=== PATIENT | male | born 1930 | race Caucasian/White ===

== ENCOUNTER 2016-06-30 09:18 | Emergency (ER) | payer BC ==
[~2016-06-30] VITALS: Ht 167.6 cm; Wt 47.4 kg
[~2016-06-30 09:18] MED LIST: CARV6.252 PO; GLUCTAB PO; LISI-363 PO
[2016-06-30 09:22] VITALS: BP 169/76; PULSE 82; RESP 16; TEMP 98.5; O2SAT 100
[2016-06-30] MEDS ORDERED: SODIUM CHLORIDE 0.9% FLUSH 10 ML FLUSH IVF PRN (09:45)
[2016-06-30 09:48] VITALS: O2SAT 99
[2016-06-30] MEDS ORDERED: [UNRECOGNIZED DRUG - REMARK] (09:51)
[2016-06-30] MEDS ORDERED: METF500T PO (09:51)
[2016-06-30 10:02] VITALS: BP_SYST 121; BP_SYST 125; BP_DIAS 57; BP_DIAS 63
[2016-06-30 10:07] LABS: AUTOMATED NEUTROPHIL # 5.1 TH/MM3 (1.8-7.7); BASOPHIL % 0.4 % (0.0-2.0); EOSINOPHIL # 0.4 TH/MM3 (0-0.4); HEMATOCRIT 39.9 % (39.0-51.0); HEMO FLAGS DIFF FINAL; LYMPH % 17.1 % (9.0-44.0); LYMPHOCYTE # 1.3 TH/MM3 (1.0-4.8); MEAN CELL VOLUME 99.3 FL (80.0-100.0); MEAN CORPUSCULAR HEMOGLOBIN 33.7 PG (27.0-34.0); MEAN CORPUSCULAR HGB CONC 33.9 % (32.0-36.0); MONO % 12.3 % (0.0-8.0); NEUT % 65.2 % (16.0-70.0); PLATELET COUNT 275 TH/MM3 (150-450); RED BLOOD COUNT 4.02 MIL/MM3 (4.50-5.90); RED CELL DISTRIBUTION WIDTH 12.6 % (11.6-17.2); WHITE BLOOD COUNT 7.7 TH/MM3 (4.0-11.0)
[2016-06-30 10:17] LABS: CHLORIDE 103 MEQ/L (98-107); POTASSIUM 4.1 MEQ/L (3.5-5.1); SODIUM (NA) 139 MEQ/L (136-145)
[2016-06-30 10:21] LABS: ANION GAP 7 MEQ/L (5-15); BICARBONATE 29.5 MEQ/L (21.0-32.0); BLOOD UREA NITROGEN 18 MG/DL (7-18)
[2016-06-30 10:24] LABS: ALT (GPT) 17 U/L (12-78); AST (GOT) 16 U/L (15-37); GLOMERULAR FILTRATION RATE 98 ML/MIN (>89)
[2016-06-30 10:26] LABS: TOTAL BILIRUBIN ADULT 0.6 MG/DL (0.2-1.0)
[2016-06-30 10:27] LABS: ALKALINE PHOSPHATASE 76 U/L (45-117)
[2016-06-30 10:42] VITALS: BP 168/82; PULSE 79; RESP 16; O2SAT 98
--- NOTE | 2016-06-30 10:48 | PD ---
HPI Chief Complaint: General Weakness Time Seen by Provider: 09:31 Travel History International Travel<30 days: No Contact w/Intl Traveler<30days: No Traveled to known affect area: No History of Present Illness HPI This is an 85-year-old male who presents to the emergency department with nonspecific complaints. He reports that last evening he felt very constipated and was having trouble having a bowel movement. He said he couldn't sleep. He said he was reading on the Internet and found a website about hospice and he thought his symptoms sounded like he was dying so he came to the emergency department to get checked out. He has a very poor historian, very tangential and doesn't provide much focused history. PFSH Past Medical History 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) Cardiovascular Problems: Yes (PACER/DEFIB.) COPD: Yes Diabetes: Yes (type II) Patient Takes Glucophage: Yes Diminished Hearing: No Endocrine: Yes Genitourinary: No Hepatitis: No Hiatal Hernia: No Hypertension: Yes Immune Disorder: No Musculoskeletal: No Neurologic: Yes (HX STROKE 2003) Psychiatric: Yes (DEPRESSION ) Reproductive: No Respiratory: Yes ("WHOOPING COUGH AND DOUBLE PNEUMONIA ") Immunizations Current: Yes Thyroid Disease: No Tetanus Vaccination: < 5 Years Influenza Vaccination: Yes Past Surgical History Abdominal Surgery: No AICD: Yes Cardiac Surgery: Yes (BALLOON ANGIOPLASTY, STENT) Ear Surgery: No Endocrine Surgery: No Eye Surgery: No Genitourinary Surgery: No Joint Replacement: No Oral Surgery: No Pacemaker: Yes (GUIDANT - [employer]) Thoracic Surgery: No Other Surgery: Yes (CATERACT) Social History Alcohol Use: No Tobacco Use: No Substance Use: No Allergies-Medications (Allergen,Severity, Reaction): Coded Allergies: No Known Allergies (Unverified , 06/30/16) Reported Meds & Prescriptions Reported Meds & Active Scripts Active Reported [Thydroid Med] Metformin (Metformin HCl) 500 Mg Tab 500 Mg PO DIRECTED With meals Review of Systems ROS Limitations: Poor Historian Physical Exam Narrative GENERAL: Frail elderly gentleman in no acute distress SKIN: Dry HEAD: Atraumatic. Normocephalic. EYES: Pupils equal and round. No injection or drainage. ENT: Moist mucous membranes NECK: Trachea midline. CARDIOVASCULAR: Regular rate and rhythm. No murmur appreciated. RESPIRATORY: Clear to auscultation. Breath sounds equal bilaterally. GASTROINTESTINAL: Abdomen soft, non-tender, nondistended. MUSCULOSKELETAL: No obvious deformities. NEUROLOGICAL: Oriented to person, place and time, able to answer questions appropriately but does seem somewhat confused. No obvious cranial nerve deficits. Moving all extremities. PSYCHIATRIC: Able to make his own decisions and articulate appropriate answers to questions. Data Data Last Documented VS Vital Signs Date Time Temp Pulse Resp B/P Pulse Ox O2 Delivery O2 Flow Rate FiO2 06/30/16 10:42 79 16 168/82 98 Room Air 06/30/16 09:22 98.5 Orders Electrocardiogram (06/30/16 09:43) Complete Blood Count With Diff (06/30/16 09:43) Comprehensive Metabolic Panel (06/30/16 09:43) Troponin I (06/30/16 09:43) Ecg Monitoring (06/30/16 09:43) Bilateral Bp Monitoring (06/30/16 09:43) Iv Access Insert/Monitor (06/30/16 09:43) Oximetry (06/30/16 09:43) Oxygen Administration (06/30/16 09:43) Sodium Chloride 0.9% Flush (Ns Flush) (06/30/16 09:45) Magnesium (Mg) (06/30/16 09:43) Labs Laboratory Tests Test 06/30/16 10:00 White Blood Count 7.7 TH/MM3 Red Blood Count 4.02 MIL/MM3 Hemoglobin 13.5 GM/DL Hematocrit 39.9 % Mean Corpuscular Volume 99.3 FL Mean Corpuscular Hemoglobin 33.7 PG Mean Corpuscular Hemoglobin 33.9 % Concent Red Cell Distribution Width 12.6 % Platelet Count 275 TH/MM3 Mean Platelet Volume 7.6 FL Neutrophils (%) (Auto) 65.2 % Lymphocytes (%) (Auto) 17.1 % Monocytes (%) (Auto) 12.3 % Eosinophils (%) (Auto) 5.0 % Basophils (%) (Auto) 0.4 % Neutrophils # (Auto) 5.1 TH/MM3 Lymphocytes # (Auto) 1.3 TH/MM3 Monocytes # (Auto) 0.9 TH/MM3 Eosinophils # (Auto) 0.4 TH/MM3 Basophils # (Auto) 0.0 TH/MM3 CBC Comment DIFF FINAL Differential Comment Sodium Level 139 MEQ/L Potassium Level 4.1 MEQ/L Chloride Level 103 MEQ/L Carbon Dioxide Level 29.5 MEQ/L Anion Gap 7 MEQ/L Blood Urea Nitrogen 18 MG/DL Creatinine 0.76 MG/DL Estimat Glomerular Filtration 98 ML/MIN Rate Random Glucose 147 MG/DL Calcium Level 8.7 MG/DL Magnesium Level 2.0 MG/DL Total Bilirubin 0.6 MG/DL Aspartate Amino Transf 16 U/L (AST/SGOT) Alanine Aminotransferase 17 U/L (ALT/SGPT) Alkaline Phosphatase 76 U/L Troponin I LESS THAN 0.02 NG/ML Total Protein 6.6 GM/DL Albumin 3.6 GM/DL [facility] Medical Decision Making Medical Screen Exam Complete: Yes Emergency Medical Condition: Yes Interpretation(s) Afebrile, no tachycardia, hypertensive No leukocytosis Electrolytes are reassuring Troponin is normal Magnesium is normal EKG: Sinus rhythm with frequent PVCs, right bundle branch block Differential Diagnosis Electrolyte abnormality, dehydration, arrhythmia, myocardial infarction Narrative Course This is a well-appearing 85-year-old male who presents to the emergency department with nonspecific complaints saying he didn't feel well last night. It's very difficult to get a handle on what symptoms the patient actually had. He mentions having trouble sleeping and mentions constipation. I did call the patient's significant other who was unable to provide much additional history but does say that his has been and he reiterates his concern dying. Currently the patient says he feels back to normal. I think the patient has dementia and this is driving his presentation today.. I spoke to his daughter Agnes who does say he has been getting more confused over the past 4-6 weeks. He's been getting preoccupied with certain things, and has been getting confused about money. She agrees that she is concerned about his driving. I asked her to make an appointment with the patient's primary care physician regarding his confusion which she agreed to do. We talked about the safety of the patient's driving. She lives in [place] so is unable to pick him up right now. I discussed with the patient that I was concerned about his driving. He was able to articulate answers to my questions and his reasoning for wanting to drive. I don't think I can keep him against his will and I think he has decision-making capacity, but given her concern we did call the police to alert them that he was driving himself home. Diagnosis Primary Impression: Dementia Qualified Code: F03.90 - Dementia without behavioral disturbance, unspecified dementia type Patient Instructions: General Instructions Additional Instructions: It is very important that he follow-up with a primary care physician regarding your increasing confusion Med/Other Pt SpecificInfo: No Change to Meds Disposition: 01 DISCHARGE HOME Condition: Stable Meron Roy MD June 30, 2016 10:48
--- NOTE | 2016-06-30 20:10 | EKG ---
Date Performed: 06/30/2016 Time Performed: 09:47:28 PTAGE: 85 years EKG: Sinus rhythm with frequent PVCs Right bundle branch block Low QRS voltages in limb leads Abnormal ECG PREVIOUS TRACING : 12/18/2014 06.42 Compared to the previous tracing PVCs present DOCTOR: Daryn Washburn Interpretating Date/Time 06/30/2016 20:08:50
== END 2016-06-30 11:22 | disposition home or self-care (01) ==
LOC: PHED 09:18
DX: F03.90 Unspecified dementia, unspecified severity, without behavioral disturbance, psychotic disturbance, mood disturbance, and anxiety (principal); K59.00 Constipation, unspecified; I49.3 Ventricular premature depolarization; I45.10 Unspecified right bundle-branch block; F32.9 Major depressive disorder, single episode, unspecified; J44.9 Chronic obstructive pulmonary disease, unspecified; E11.9 Type 2 diabetes mellitus without complications; I10 Essential (primary) hypertension; Z86.73 Personal history of transient ischemic attack (TIA), and cerebral infarction without residual deficits
CPT/HCPCS: 80053; 83735; 84484; 85025; 93005; 99284

== ENCOUNTER 2016-09-26 19:29 | Emergency (ER) | payer BC ==
[~2016-09-26 19:29] MED LIST changes: -CARV6.252 PO; -GLUCTAB PO; -LISI-363 PO; +METF500T PO; +[UNRECOGNIZED DRUG - REMARK]
[2016-09-26 19:43] VITALS: BP 194/91; PULSE 104; RESP 18; TEMP 98.1; O2SAT 97
[2016-09-26] MEDS ORDERED: LISI-515 PO (20:29)
[2016-09-26] MEDS ORDERED: METF500T PO (20:29)
[2016-09-26] MEDS ORDERED: CARV6.252 PO (20:29)
[2016-09-26] MEDS ORDERED: TRAZ50TA12 PO (20:29)
[2016-09-26] MEDS ORDERED: RIVA1DIS2 T-DERMAL (20:29)
[2016-09-26] MEDS ORDERED: SODIUM CHLORIDE 0.9% FLUSH 10 ML FLUSH IVF PRN (20:30)
--- NOTE | 2016-09-26 20:54 | RADRPT ---
EXAM DATE/TIME: 09/26/2016 20:43 [facility] COMPARISON: No previous studies available for comparison. INDICATIONS : Shortness of breath and heart palpitations. MEDICAL HISTORY : Diabetes mellitus type II. SURGICAL HISTORY : CABG. Pacemaker. ENCOUNTER: Initial ACUITY: 2 days PAIN SCORE: 0/10 LOCATION: Bilateral chest FINDINGS: The lungs are clear without infiltrate, nodule, or mass. There is no appreciable pleural effusion fo r technique. Heart and mediastinum are unremarkable. Left subclavian transvenous pacer wires are pre sent with tips in the right atrium and right ventricle. There are atherosclerotic calcifications of t he aorta due to chronic atherosclerotic disease. Evidence for prior granulomatous exposure. CONCLUSION: No acute cardiopulmonary disease. Brigid Gallagher MD on September 26, 2016 at 20:52 Board Certified Radiologist. This report was verified electronically.
[2016-09-26 20:59] LABS: BASOPHIL % 0.3 % (0.0-2.0); EOSINOPHIL % 0.1 % (0.0-4.0); HEMATOCRIT 45.2 % (39.0-51.0); LYMPH % 6.6 % (9.0-44.0); MEAN CELL VOLUME 97.7 FL (80.0-100.0); MEAN CORPUSCULAR HEMOGLOBIN 32.4 PG (27.0-34.0); MEAN CORPUSCULAR HGB CONC 33.2 % (32.0-36.0); PLATELET COUNT 264 TH/MM3 (150-450); RED BLOOD COUNT 4.62 MIL/MM3 (4.50-5.90); RED CELL DISTRIBUTION WIDTH 12.3 % (11.6-17.2); WHITE BLOOD COUNT 14.8 TH/MM3 (4.0-11.0)
[2016-09-26 21:00] LABS: HEMO FLAGS DIFF FINAL
[2016-09-26 21:03] VITALS: BP 193/81; PULSE 97; RESP 18; O2SAT 98
[2016-09-26 21:08] LABS: CHLORIDE 100 MEQ/L (98-107); POTASSIUM 3.6 MEQ/L (3.5-5.1); SODIUM (NA) 135 MEQ/L (136-145)
[2016-09-26 21:11] LABS: ANION GAP 6 MEQ/L (5-15); BICARBONATE 28.8 MEQ/L (21.0-32.0); BLOOD UREA NITROGEN 14 MG/DL (7-18); MAGNESIUM 1.5 MG/DL (1.5-2.5)
[2016-09-26 21:13] LABS: APTT (PATIENT) 27.7 SEC (24.3-30.1); INTERNATIONAL NORMALIZED RATIO 1.1 RATIO; PROTHROMBIN TIME - PATIENT 11.8 SEC (9.8-11.6)
[2016-09-26 21:14] LABS: GLOMERULAR FILTRATION RATE 79 ML/MIN (>89)
--- NOTE | 2016-09-26 21:18 | RADRPT ---
EXAM DATE/TIME: 09/26/2016 20:51 [facility] COMPARISON: No previous studies available for comparison. INDICATIONS : Dizziness and shortness of brreath RADIATION DOSE: 61.60 CTDIvol (mGy) MEDICAL HISTORY : Stroke. Diabetes mellitus type 2. Hypertension. SURGICAL HISTORY : Coronary artery stent. cataract ENCOUNTER: Initial ACUITY: 1 day PAIN SCALE: 0/10 LOCATION: cranial TECHNIQUE: Multiple contiguous axial images were obtained of the head. Using automated exposure control and adj ustment of the mA and/or kV according to patient size, radiation dose was kept as low as reasonably a chievable to obtain optimal diagnostic quality images. DICOM format image data is available electro nically for review and comparison. FINDINGS: There is no evidence for intracranial hemorrhage, mass effect, mass lesions, or edema. The visualize d bony structures appear intact. Moderate degree of brain atrophy is seen. Moderate periventricular white matter changes are seen nonspecific mostly consistent with chronic small vessel ischemic change s. There are no signs of acute infarction for technique. There are also old lacunar infarctions in b rachel ganglia bilaterally. CONCLUSION: Chronic and small vessel ischemic changes without any evidence for acute hemorrhage o r mass effect. Brigid Gallagher MD on September 26, 2016 at 21:15 Board Certified Radiologist. This report was verified electronically.
[2016-09-26 21:24] LABS: CREATINE KINASE 49 U/L (39-308)
--- NOTE | 2016-09-26 21:25 | PD ---
HPI Chief Complaint: Respiratory Symptoms Time Seen by Provider: 20:28 Travel History International Travel<30 days: No Contact w/Intl Traveler<30days: No Traveled to known affect area: No History of Present Illness HPI 85-year-old male presents to the emergency department from home by private transportation the care of his daughter for evaluation of generalized weakness right-sided neck pain and shortness of breath with exertion. Patient with history of dementia, peripheral vascular disease with left lower extremity left femoral endarterectomy with patch angioplasty and iliofemoral angiography 2014, pacemaker AICD, hypertension, diabetes, and hypothyroidism. Patient has had no injury or fall. Patient has been weaker over the past several days. There is no reported fever or chills. No productive cough or shortness of breath. No complaint of chest pain or referred jaw shoulder arm back or abdominal pain. No defibrillation from his AICD since placement. No nausea or vomiting or abdominal pain and no change in bowel habit no diarrhea or constipation or melena or hematochezia. Normal urine output. No change in medications. No focal upper or lower extremity numbness tingling weakness or pain. No complaint of left lower extremity weakness coolness pain or pallor. Right- sided neck pain is noted as 5/10 in intensity and not worsened with palpation or range of motion and no noted redness or swelling or warmth. Shortness of breath exertion has been noted 2 days. No report of dyspnea at rest orthopnea or PND and no lower extremity pain or swelling or redness. Patient recently had his dementia medication increased by his neurologist Dr. Hall. ON LICENSE OF [facility] Past Medical History Narrative Medical Aspirin daily COPD hypothyroidism diabetes skin cancer CAD with an angioplasty and stent pacemaker defibrillator peripheral vascular disease with endarterectomy stroke in 2002 dementia depression; no tobaccoism; nursing notes reviewed 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) Cardiovascular Problems: Yes (PACER/DEFIB.) COPD: Yes Diabetes: Yes (type II) Patient Takes Glucophage: Yes Diminished Hearing: No Endocrine: Yes Gastrointestinal Disorders: No Genitourinary: No Hepatitis: No Hiatal Hernia: No Hypertension: Yes Immune Disorder: No Medical other: No Musculoskeletal: No Neurologic: Yes (HX STROKE 2002) Psychiatric: Yes (DEPRESSION ) Reproductive: No Respiratory: Yes ("WHOOPING COUGH AND DOUBLE PNEUMONIA INFANT") Immunizations Current: Yes Thyroid Disease: No ?: Not Past Surgical History Abdominal Surgery: No AICD: Yes Cardiac Surgery: Yes (BALLOON ANGIOPLASTY, STENT) Ear Surgery: No Endocrine Surgery: No Eye Surgery: No Genitourinary Surgery: No Joint Replacement: No Neurologic Surgery: No Oral Surgery: No Pacemaker: Yes (GUIDANT - [employer]) Thoracic Surgery: No Other Surgery: Yes (CATERACT) Social History Alcohol Use: No Tobacco Use: No Substance Use: No Allergies-Medications (Allergen,Severity, Reaction): Coded Allergies: No Known Allergies (Unverified , 09/26/16) Reported Meds & Prescriptions Reported Meds & Active Scripts Active Reported Rivastigmine Patch (Rivastigmine) 9.5 mg/24 hr Patch 1 Patch T-DERMAL DAILY Lisinopril 20 Mg Tab 20 Mg PO DAILY Carvedilol 6.25 Mg Tab 6.25 Mg PO BID Metformin (Metformin HCl) 500 Mg Tab 500 Mg PO TIDPC With meals Trazodone (Trazodone HCl) 50 Mg Tab 50 Mg PO HS [Thydroid Med] Metformin (Metformin HCl) 500 Mg Tab 500 Mg PO DIRECTED With meals Review of Systems Except as stated in HPI: all other systems reviewed are Neg General / Constitutional: No: Fever, Chills HENT: Positive: Neck Pain (right sided), No: Headaches, Sore Throat, Congestion, Masses, Earache Cardiovascular: Positive: Dyspnea on exertion, No: Chest Pain or Discomfort, Palpitations, Diaphoresis, Edema Respiratory: No: Cough, Shortness of Breath, Wheezing, Orthopnea, Pleuritic Pain Gastrointestinal: No: Nausea, Vomiting, Abdominal Pain Genitourinary: No: Flank Pain Musculoskeletal: No: Myalgias, Arthralgias, Weakness, Cramping, Edema, Pain Skin: No Rash Neurologic: Positive: Weakness (generalized), No: Syncope, Focal Abnormalities , Headache, Change in Mentation, Sensory Disturbance Psychiatric: No: Anxiety Endocrine: No: Heat Intolerance Hematologic/Lymphatic: No: Easy Bruising Physical Exam Narrative GENERAL: Well-developed elderly male in no acute distress no respiratory distress resting 30 semi-Khan on exam stretcher. GCS 15. SKIN: Warm and dry. HEAD: Normocephalic. EYES: No scleral icterus. No injection or drainage. NECK: Supple, trachea midline. No JVD or lymphadenopathy. CARDIOVASCULAR: Regular rate and rhythm without murmurs, gallops, or rubs. RESPIRATORY: Breath sounds equal bilaterally. No accessory muscle use. GASTROINTESTINAL: Abdomen soft, non-tender, nondistended. MUSCULOSKELETAL: No cyanosis, or edema. Bilateral radial pulses 2++=; right PT 2 +, R DP 1+; Left PT to palpation L DP 1+ to palpation; bilateral capillary refill < 2 seconds BACK: Nontender without obvious deformity. No CVA tenderness. Data Data Last Documented VS Vital Signs Date Time Temp Pulse Resp B/P Pulse Ox O2 Delivery O2 Flow Rate FiO2 09/26/16 23:12 84 16 176/72 100 09/26/16 22:08 Room Air 09/26/16 19:43 98.1 Orders Electrocardiogram (09/26/16 20:28) Basic Metabolic Panel (Bmp) (09/26/16 20:28) Complete Blood Count With Diff (09/26/16 20:28) Magnesium (Mg) (09/26/16 20:28) Ckmb (Isoenzyme) Profile (09/26/16 20:28) Troponin I (09/26/16 20:28) Act Partial Throm Time (Ptt) (09/26/16 20:28) Prothrombin Time / Inr (Pt) (09/26/16 20:28) Urinalysis - C+S If Indicated (09/26/16 20:28) Chest, Single Ap (09/26/16 20:28) Ct Brain W/O Iv Contrast(Rout) (09/26/16 20:28) Blood Glucose (09/26/16 20:28) Ecg Monitoring (09/26/16 20:28) Iv Access Insert/Monitor (09/26/16 20:28) Oximetry (09/26/16 20:28) Sodium Chloride 0.9% Flush (Ns Flush) (09/26/16 20:30) Carvedilol (Coreg) (09/26/16 21:45) Ketorolac Inj (Toradol Inj) (09/26/16 22:15) Ct Cerv Spine W/O Contrast (09/26/16 ) Labs Laboratory Tests Test 09/26/16 09/26/16 20:50 21:30 White Blood Count 14.8 TH/MM3 Red Blood Count 4.62 MIL/MM3 Hemoglobin 15.0 GM/DL Hematocrit 45.2 % Mean Corpuscular Volume 97.7 FL Mean Corpuscular Hemoglobin 32.4 PG Mean Corpuscular Hemoglobin 33.2 % Concent Red Cell Distribution Width 12.3 % Platelet Count 264 TH/MM3 Mean Platelet Volume 8.0 FL Neutrophils (%) (Auto) 81.0 % Lymphocytes (%) (Auto) 6.6 % Monocytes (%) (Auto) 12.0 % Eosinophils (%) (Auto) 0.1 % Basophils (%) (Auto) 0.3 % Neutrophils # (Auto) 12.0 TH/MM3 Lymphocytes # (Auto) 1.0 TH/MM3 Monocytes # (Auto) 1.8 TH/MM3 Eosinophils # (Auto) 0.0 TH/MM3 Basophils # (Auto) 0.0 TH/MM3 CBC Comment DIFF FINAL Differential Comment Prothrombin Time 11.8 SEC Prothromb Time International 1.1 RATIO Ratio Activated Partial 27.7 SEC Thromboplast Time Sodium Level 135 MEQ/L Potassium Level 3.6 MEQ/L Chloride Level 100 MEQ/L Carbon Dioxide Level 28.8 MEQ/L Anion Gap 6 MEQ/L Blood Urea Nitrogen 14 MG/DL Creatinine 0.92 MG/DL Estimat Glomerular Filtration 79 ML/MIN Rate Random Glucose 193 MG/DL Calcium Level 9.0 MG/DL Magnesium Level 1.5 MG/DL Total Creatine Kinase 49 U/L Troponin I LESS THAN 0.02 NG/ML Urine Color YELLOW Urine Turbidity CLOUDY Urine pH 7.0 Urine Specific [place] 1.015 Urine Protein 30 mg/dL Urine Glucose (UA) NEG mg/dL Urine Ketones NEG mg/dL Urine Occult Blood TRACE Urine Nitrite NEG Urine Bilirubin NEG Urine Leukocyte Esterase NEG Urine RBC 3-5 /hpf Urine WBC 0-2 /hpf Urine Squamous Epithelial 0-5 /hpf Cells Urine Amorphous Sediment LARGE Urine Bacteria NONE /hpf Microscopic Urinalysis Comment CULT NOT INDICATED MDM Medical Decision Making Medical Screen Exam Complete: Yes Emergency Medical Condition: Yes Medical Record Reviewed: Yes Interpretation(s) EKG sinus rhythm rate 95 right bundle branch block pattern no acute ST elevation or injury pattern right bundle branch block pattern noted 06/2016 CT cerv spine: CONCLUSION: Neural foramina compromise left C5-C6 multinodular goiter and chronic degenerative spondylosis. Brigid Gallagher MD on September 26, 2016 at 22:45 Board Certified Radiologist. This report was verified electronically. Last Impressions Head CT 09/26/162027 Signed Impressions: Service Date/Time: Monday, September 26, 2016 20:51 - CONCLUSION: Chronic and small vessel ischemic changes without any evidence for acute hemorrhage or mass effect. Brigid Gallagher MD Chest X-Ray 09/26/162027 Signed Impressions: Service Date/Time: Monday, September 26, 2016 20:43 - CONCLUSION: No acute cardiopulmonary disease. Brigid Gallagher MD CBC & BMP Diagram 09/26/16 20:50 UA: wnl Vital Signs Date Time Temp Pulse Resp B/P Pulse Ox O2 Delivery O2 Flow Rate FiO2 09/26/16 22:08 77 16 173/88 99 Room Air 09/26/16 21:43 85 16 164/82 99 Room Air 09/26/16 21:03 97 18 193/81 98 Room Air 09/26/16 20:31 98 09/26/16 19:43 98.1 104 18 194/91 97 Differential Diagnosis Generalized weakness, anemia, hypothyroidism, ACS, musculoskeletal neck pain, UTI, sepsis, arrhythmia, PE; also to consider dissection Narrative Course IV access obtained specimens collected and sent for resulting EKG performed which shows sinus rhythm with previously noted right bundle branch block pattern no acute injury pattern change noted CBC is automated differential total white cell count is elevated 14,800 with 81 % neutrophils normal hemoglobin hematocrit and platelet count; chemistries are grossly within normal range is identified a random glucose of 193 nonspecific CK total is 49 not elevated troponin I is less than 0.02, not elevated and coagulation studies are found to be in normal range. Urinalysis is pending. Patient's had taken his evening dose of carvedilol 6.25 mg which will be administered in the emergency department as Blood pressure is noted to remain elevated. Patient rates discomfort 0/10 intensity. Patient is animated and conversant with medical staff and with family members. CT brain noncontrast reveals no acute abnormality does show chronic ischemic changes and chest x-ray reveals no acute abnormality. @ 22:04 patient now c/o pain again to the right side of the neck and reports that in fact he has had several falls that he had not told anyone about. CT cervical spine and neck ordered. Patient given Toradol 50 mg IV. Diagnosis Primary Impression: Generalized weakness Additional Impressions: Viral syndrome LAD (lymphadenopathy) of right cervical region Cervical disc disease Multinodular goiter Referrals: Primary Care Physician 2 days Patient Instructions: General Instructions Additional Instructions: Take daily medications as presently prescribed Monitor temperature every 4 hours with thermometer take acetaminophen/Tylenol every 4 hours as needed for fever 100.4F or greater May take ibuprofen/Motrin/Advil 200-400 mg as often as every 8 hours for 2-3 doses as needed for pain associated with inflammation Follow-up with primary care provider call office on Wednesday Return to the emergency department for increased pain fever or any concerns or change in condition Med/Other Pt SpecificInfo: No Change to Meds Disposition: 01 DISCHARGE HOME Condition: Stable Vilma Blevins MD Sep 26, 2016 21:25
[2016-09-26 21:39] LABS: BLOOD, URINE TRACE (NEG); GLUCOSE,URINE NEG (NEG); KETONE, URINE NEG (NEG); NITRITE,URINE NEG (NEG)
[2016-09-26 21:40] LABS: URINE COLOR YELLOW (YELLW/STRAW)
[2016-09-26 21:43] VITALS: BP 164/82; PULSE 85; RESP 16; O2SAT 99
[2016-09-26 21:43] LABS: COMMENT (UR) CULT NOT INDICATED; CULTURE IF INDICATED CULT NOT INDICATED; SQUAMOUS EPITHELIAL CELL URINE 0-5 /hpf (0-5); WBC, URINE 0-2 /hpf (0-5)
[2016-09-26] MEDS ORDERED: CARVEDILOL 6.25 MG TAB PO ONE (21:45)
[2016-09-26 22:08] VITALS: BP 173/88; PULSE 77; RESP 16; O2SAT 99
[2016-09-26] MEDS ORDERED: KETOROLAC TROMETHAMINE 30 MG/ML (IVP) VIAL IV PUSH ONE (22:15)
--- NOTE | 2016-09-26 22:50 | RADRPT ---
EXAM DATE/TIME: 09/26/2016 22:24 [facility] COMPARISON: No previous studies available for comparison. TECHNIQUE: Volumetric scanning of the cervical spine was performed. Multiplanar reconstructions in the sagittal, coronal and oblique axial planes were performed. Using automated exposure control and adjustment o f the mA and/or kV according to patient size, radiation dose was kept as low as reasonably achievable to obtain optimal diagnostic quality images. DICOM format image data is available electronically f or review and comparison. FINDINGS: There is approximate 2-3 mm anterior subluxation C3 with respect to C4 in addition to step-like retrolisthesis C4-5 and C5-6 on a chronic and degenerative basis. Multinodular goiter is present with the largest nodule on the right side measures 2.2 cm in size. No definite fracture is seen for techn ique. C2-C3: Mild central disc protrusion is present without any significant compromise to the thecal sac or the e xiting nerve roots. C3-C4: Slight degenerative changes are seen within the disc space and facets. Slight bulging disc and hypert rophic changes are seen with indentation on the thecal sac and no significant compromise to the theca l sac or the exiting nerve roots. C4-C5: Moderate degenerative changes are seen within the disc space and facets. Slight bulging disc and hype rtrophic changes are seen with indentation on the thecal sac and no significant compromise to the the vianey sac or the exiting nerve roots. C5-C6: Moderate degenerative changes are seen within the disc space and facets. There is moderate neural for obi compromise on the left due to asymmetrical bulging disc and hypertrophic changes. No appreciabl e thecal sac stenosis is seen. C6-C7: There is no evidence for any significant compromise to the thecal sac, or the exiting nerve roots. N o appreciable thecal sac stenosis is seen. The neural foramina and lateral recess appear patent bila terally. C7-T1: There is no evidence for any significant compromise to the thecal sac, or the exiting nerve roots. N o appreciable thecal sac stenosis is seen. The neural foramina and lateral recess appear patent bila terally. CONCLUSION: Neural foramina compromise left C5-C6 multinodular goiter and chronic degenerative spondylosis. Brigid Gallagher MD on September 26, 2016 at 22:45 Board Certified Radiologist. This report was verified electronically.
[2016-09-26 23:12] VITALS: BP 176/72
--- NOTE | 2016-09-27 15:58 | EKG ---
Date Performed: 09/26/2016 Time Performed: 20:38:36 PTAGE: 85 years EKG: Sinus rhythm POSSIBLE LEFT ATRIAL ENLARGEMENT RIGHT BUNDLE BRANCH BLOCK ABNORMAL ECG Compared to PREVIOUS TRACING , PVCs have resolved. PREVIOUS TRACIN06/30/2016 09.47 DOCTOR: Fracisco Rivero Interpretating Date/Time 09/27/2016 15:58:24
== END 2016-09-26 23:14 | disposition home or self-care (01) ==
LOC: PHED 19:29
DX: R53.1 Weakness (principal); B34.9 Viral infection, unspecified; R59.0 Localized enlarged lymph nodes; M50.90 Cervical disc disorder, unspecified, unspecified cervical region; E04.2 Nontoxic multinodular goiter; I10 Essential (primary) hypertension; E11.9 Type 2 diabetes mellitus without complications; Z79.84 Long term (current) use of oral hypoglycemic drugs; Z79.899 Other long term (current) drug therapy
CPT/HCPCS: 70450; 71010; 72125; 80048; 81001; 82550; 83735; 84484; 85025; 85610; 85730; 93005; 96374; 99285; J1885

== ENCOUNTER 2017-01-12 05:53 | Inpatient (IN) | payer MEDICARE, BC ==
[2017-01-12] VITALS (8 sets, daily range): BP systolic 115–148; BP diastolic 56–65; PULSE 53–87; RESP 16–17; TEMP 97.5–98.3; O2SAT 92–99
[~2017-01-12] VITALS: Ht 160 cm; Wt 49.5 kg
[~2017-01-12 05:53] MED LIST changes: +CARV6.252 PO; +LISI-515 PO; -METF500T PO; +NAME5TAB2 PO; +RIVA1DIS2 T-DERMAL; +TRAZ50TA12 PO; -[UNRECOGNIZED DRUG - REMARK]
[2017-01-12] MEDS ORDERED: SODIUM CHLORIDE 0.9% INJ 100 ML ONE (06:38)
[2017-01-12] MEDS ORDERED: ceFAZolin INJ 1,000 MG VIAL ONE ×2 (06:38→10:43)
[2017-01-12] MEDS ORDERED: PROTAMINE SULFATE 50 MG/5 ML VIAL ONE (07:02)
[2017-01-12] MEDS ORDERED: BUPIVACAINE/EPINEPHRINE 0.5% PF 30 ML VIAL ONE (07:02)
[2017-01-12] MEDS ORDERED: HEPARIN SODIUM - IV 10,000 UNITS/10 ML VIAL ONE (07:02)
[2017-01-12] MEDS ORDERED: METOPROLOL TARTRATE 25 MG TAB ONE (07:02)
[2017-01-12 07:10] LABS: AUTOMATED NEUTROPHIL # 4.8 TH/MM3 (1.8-7.7); BASOPHIL % 0.5 % (0.0-2.0); EOSINOPHIL # 0.2 TH/MM3 (0-0.4); HEMATOCRIT 38.3 % (39.0-51.0); HEMO FLAGS DIFF FINAL; LYMPHOCYTE # 1.4 TH/MM3 (1.0-4.8); MEAN CELL VOLUME 99.8 FL (80.0-100.0); MEAN CORPUSCULAR HEMOGLOBIN 34.1 PG (27.0-34.0); MEAN CORPUSCULAR HGB CONC 34.1 % (32.0-36.0); MONO % 13.6 % (0.0-8.0); NEUT % 63.9 % (16.0-70.0); PLATELET COUNT 210 TH/MM3 (150-450); RED BLOOD COUNT 3.83 MIL/MM3 (4.50-5.90); WHITE BLOOD COUNT 7.6 TH/MM3 (4.0-11.0)
[2017-01-12 07:19] LABS: APTT (PATIENT) 25.5 SEC (24.3-30.1); INTERNATIONAL NORMALIZED RATIO 1.1 RATIO; PROTHROMBIN TIME - PATIENT 10.9 SEC (9.8-11.6)
[2017-01-12 07:34] LABS: BICARBONATE 25.9 MEQ/L (21.0-32.0); POTASSIUM 4.1 MEQ/L (3.5-5.1)
[2017-01-12] MEDS ORDERED: SODIUM CHLORID 0.9% 500 ML IV PRN (07:45)
[2017-01-12] MEDS ORDERED: LACTATED RINGER'S 1000 ML IV PRN (07:45)
[2017-01-12] MEDS ORDERED: CHLORHEXIDINE GLUCONATE 2 % 1 PACK (2 CLOTHS) TOPICAL PRN (07:45)
[2017-01-12] MEDS ORDERED: POVIDONE IODINE 5% (ANTISEPSIS KIT) 4 APPLICATIONS EACH NARE PRN (07:45)
[2017-01-12] MEDS ORDERED: METOPROLOL TARTRATE 25 MG TAB PO PRN (07:45)
[2017-01-12] MEDS ORDERED: ceFAZolin 1,000 MG/NS 100 ML IV SCH ×2 (07:45)
[2017-01-12] MEDS ORDERED: INSULIN HUMAN REGULAR 1,000 UNITS/10 ML VIAL SQ PRN (07:45)
[2017-01-12] MEDS ORDERED: ACETAMINOPHEN 1000 MG/100 ML 100 ML IV ONE (08:05)
[2017-01-12] MEDS ORDERED: HEPARIN SODIUM - SQ 10,000 UNITS/ML VIAL ONE (08:29)
[2017-01-12] MEDS ORDERED: DO NOT ADM ANY ANTICOAGULANT DRUGS PRN (13:02)
[2017-01-12] MEDS ORDERED: ASPIRIN EC 81 MG TABEC ONE (13:30)
[2017-01-12] MEDS: LISINOPRIL 20 MG TAB PO SCH ×2 (13:36→21:04)
[2017-01-12] MEDS: CARVEDILOL 6.25 MG TAB PO SCH ×2 (13:37→21:05)
[2017-01-12] MEDS ORDERED: POTASSIUM PHOSPHATE 21 MMOL/NS 250 ML IV PRN ×2 (13:45)
[2017-01-12] MEDS ORDERED: POTASSIUM CHLOR 20 MEQ/100 ML x 1 BAG IV PRN (13:45)
[2017-01-12] MEDS ORDERED: MAGNESIUM SULFATE 1 GM/100 ML IV PRN (13:45)
[2017-01-12] MEDS ORDERED: ACETAMINOPHEN/HYDROcodone 325 MG/5 MG TAB PO PRN (13:45)
[2017-01-12] MEDS ORDERED: DEXTROSE 50% IN WATER 50 ML VIAL(D50) IV PUSH PRN (13:45)
[2017-01-12] MEDS ORDERED: GLUCAGON 1 MG/ML VIAL OTHER PRN (13:45)
[2017-01-12] MEDS ORDERED: SODIUM CHLORIDE 0.9% FLUSH 10 ML FLUSH IV FLUSH PRN (13:45)
[2017-01-12] MEDS ORDERED: MORPHINE SULFATE 4 MG/ML INJ IV PUSH PRN (13:45)
[2017-01-12] MEDS ORDERED: ONDANSETRON HCL 4 MG/2 ML VIAL IV PUSH PRN (13:45)
[2017-01-12] MEDS ORDERED: POTASSIUM CHLOR 20 MEQ 100 ML x 2 BAGS IV PRN (13:45)
[2017-01-12] MEDS: MEDIUM DOSE INSULIN NOVOLIN REGULAR SUPPLEMENTAL SCALE SQ SCH ×2 (17:00→21:00)
[2017-01-12] MEDS: SODIUM CHLORIDE 0.9% FLUSH 10 ML FLUSH IV FLUSH SCH (21:05)
--- NOTE | 2017-01-12 21:16 | MP ---
cc: SAMMI MIRZA JAMES DATE OF SURGERY 01/12/2017 PREOPERATIVE DIAGNOSIS Limb threatening left lower extremity ischemia. POSTOPERATIVE DIAGNOSIS Limb threatening left lower extremity ischemia. OPERATIVE PROCEDURE Left external iliac balloon angioplasty / stent. Below-knee in situ femoral-popliteal bypass. SURGEON Michael Colbert MD CUSTOMER ENERGY SPECIALIST DETAILS OF PROCEDURE With the patient in the supine position and under general endotracheal anesthesia the lower abdomen, both groins and the entire left lower extremity were prepped with Betadine and draped in a sterile fashion. Following a protocol time-out and administration of appropriate IV antibiotic prophylaxis, skin and subcutaneous tissue within the old left femoral endarterectomy scar was infiltrated with 0.5% Marcaine with epinephrine. The old scar was reincised. Dissection was continued sharply through the underlying dense, sclerotic tissue. The proximal greater saphenous vein, saphenofemoral junction and common femoral artery were circumferentially mobilized. An 18 gauge needle was inserted into the mid left common femoral lumen through the old by bovine patchotomy mid section and a J-wire advanced under fluoroscopic guidance into the iliac artery. A 5-Turkish hemostatic sheath was deployed over the J-wire. Retrograde injection of diluted contrast through the sheath side-arm revealed a high-grade, near-complete occlusion of the external iliac artery. The near complete occlusion was easily navigated with an Advantage guidewire quick cross catheter combination. The patient was systemically heparinized with 5000 units and ACT measured above 250. The external iliac stenosis was balloon angioplastied with a 6 x 40 mm balloon inflated to 6 atmospheres, 2-minute inflation. This was followed by deployment of a Zilver 7 x 40 mm stent post dilated to 7 mm. Skin and subcutaneous tissue along the proximal medial calf was infiltrated with 0.5% Marcaine with epinephrine. A vertical incision was performed several centimeters medial to the tibia. The incision was deepened through the subcutaneous tissue. The greater saphenous vein from the knee joint to the midcalf level was circumferentially mobilized, branches isolated and ligated in continuity with three ties of 4-0 silk and small hemoclips prior to branch division. The incision was deepened through the superficial fascia and the distal popliteal space entered. The popliteal artery was circumferentially mobilized to its trifurcation, cannulated with an 18-gauge butterfly needle and diluted contrast injected in conjunction with digital C-arm fluoroscopic imaging. This confirmed wide patency of the below-knee popliteal with unimpeded two-vessel runoff to the left foot. The saphenofemoral junction was divided between a small Satinsky clamp proximally and a Yasargil clip distally. The proximal cuff of saphenous vein was secured with continuous 5-0 Prolene. The saphenous vein was then spatulated on end. The first saphenous vein valve was excised with Rodrigues scissors. The femoral artery was occluded proximally with a small Satinsky clamp and distally with angled DeBakey vascular clamp. A vertical incision was made within the old bovine patchotomy. The saphenous vein was anastomosed end-to-side to the patchotomy with continuous 6-0 Prolene. A disposable valvulotome was then utilized to lyse the saphenous vein valves, three separate atraumatic passages resulting in antegrade flow from the distal vein graft. The popliteal artery was occluded proximally and distally with Yasargil clips. A vertical 2-cm arteriotomy was performed along the anteromedial surface. The vein was trimmed to appropriate length, spatulated on end and anastomosed end-to-side to the popliteal arteriotomy with continuous 6-0 Prolene. The occluding Yasargil clips were removed establishing pulsatile flow within the vein graft into the popliteal artery as confirmed by brisk Doppler flow. The common femoral artery was recannulated with an 18-gauge butterfly needle and diluted contrast injected. This revealed a widely patent femoral-popliteal bypass, both proximal and distal anastomoses. No residual collateral veins were present. Heparin was reversed with 20 mg of protamine and strict hemostasis achieved. Both incisions were closed with three separate layers of continuous 4-0 Monocryl, continuous subcuticular 5-0 Monocryl. Steri-Strips applied. At the completion of the procedure the posterior tibial pulse was palpable with robust triphasic Doppler flow. The patient returned to the recovery room in stable condition having tolerated procedure well. MD EDILSON Cox/RYAN /7:26 PM /8:12 PM
[2017-01-13] VITALS (15 sets, daily range): BP systolic 123–133; BP diastolic 57–63; PULSE 66–88; RESP 16–18; TEMP 97.7–98.5; O2SAT 91–98
[2017-01-13] MEDS: MEDIUM DOSE INSULIN NOVOLIN REGULAR SUPPLEMENTAL SCALE SQ SCH ×2 (07:54→12:00)
[2017-01-13] MEDS ORDERED: GLIMEPIRIDE 1 MG TAB PO SCH (08:00)
[2017-01-13] MEDS: SODIUM CHLORIDE 0.9% FLUSH 10 ML FLUSH IV FLUSH SCH (08:47)
[2017-01-13] MEDS: CARVEDILOL 6.25 MG TAB PO SCH (08:47)
[2017-01-13] MEDS ORDERED: ASPIRIN EC 81 MG TABEC PO SCH (09:00)
[2017-01-13] MEDS: LISINOPRIL 20 MG TAB PO SCH (09:16)
[2017-01-13] MEDS ORDERED: ASPI-516 CHEW (13:21)
[2017-01-13] MEDS ORDERED: TYLETAB34 PO (13:21)
== END 2017-01-13 13:45 | disposition home or self-care (01) | DRG 254 ==
LOC: HSDI 05:53 → HCPC 16:02
PROVIDERS: ADMIT Surgery Vascular Surgery; ATTEND Surgery Vascular Surgery
PROC: 041L0ZL Bypass Left Femoral Artery to Popliteal Artery, Open Approach (ICD-10-PCS; principal; 2017-01-12 08:14)
PROC: 047J3DZ Dilation of Left External Iliac Artery with Intraluminal Device, Percutaneous Approach (ICD-10-PCS; 2017-01-12 08:14)
DX: I99.8 Other disorder of circulatory system (principal); I74.5 Embolism and thrombosis of iliac artery; E11.69 Type 2 diabetes mellitus with other specified complication; F01.50 Vascular dementia, unspecified severity, without behavioral disturbance, psychotic disturbance, mood disturbance, and anxiety; F17.290 Nicotine dependence, other tobacco product, uncomplicated; F32.9 Major depressive disorder, single episode, unspecified; Z85.820 Personal history of malignant melanoma of skin; Z86.73 Personal history of transient ischemic attack (TIA), and cerebral infarction without residual deficits
CPT/HCPCS: 80048; 82948; 85025; 85610; 85730; 86850; 86900; 86901; J0131; J0690; J1644; J2720; J7120

== ENCOUNTER 2017-05-04 14:54 | Inpatient (IN) | payer MEDICARE, BC ==
[~2017-05-04] VITALS: Ht 160 cm; Wt 51.0 kg
[~2017-05-04 14:54] MED LIST changes: +ASPI-516 CHEW; -NAME5TAB2 PO; +TYLETAB34 PO
[2017-05-04 15:02] VITALS: BP 134/63; PULSE 84; RESP 22; TEMP 98.3; O2SAT 97
[2017-05-04 15:21] VITALS: RESP 22; O2SAT 97
[2017-05-04] MEDS ORDERED: SODIUM CHLORIDE 0.9% FLUSH 10 ML FLUSH IVF PRN (15:30)
[2017-05-04] MEDS ORDERED: methylPREDNISolone SOD SUCC 125 MG/2 ML VIAL IV PUSH ONE (15:30)
--- NOTE | 2017-05-04 15:54 | RADRPT ---
EXAM DATE/TIME: 05/04/2017 15:29 [facility] COMPARISON: CHEST SINGLE AP, September 26, 2016, 20:43. INDICATIONS : Short of breath and chest pain. MEDICAL HISTORY : Stroke. Diabetes mellitus type 2. Hypertension. SURGICAL HISTORY : Coronary artery stent. ENCOUNTER: Initial ACUITY: 1 day PAIN SCORE: 3/10 LOCATION: Bilateral chest FINDINGS: A single view of the chest demonstrates airspace disease in the right upper lobe, right lower lobe an d left lower lobe. Chronic obstructive lung disease with pulmonary hyperinflation is again noted. ICD device is in stable position. Heart remains normal in size. Significant shoulder arthropathy is noted. CONCLUSION: 1. Acute bilateral airspace disease. 2. COPD. 3. Stable pacemaker. Orlin Ortiz MD on May 04, 2017 at 15:50 Board Certified Radiologist. This report was verified electronically.
[2017-05-04] MEDS ORDERED: METF500T PO (15:57)
[2017-05-04] MEDS: RESP: ALBUTEROL 2.5 MG/3 ML NEB (SCH) INH ×2 (16:45→17:19)
[2017-05-04 17:26] VITALS: BP 129/67; PULSE 89; RESP 20; TEMP 97.9; O2SAT 98
[2017-05-04 17:30] LABS: AUTOMATED NEUTROPHIL # 7.6 TH/MM3 (1.8-7.7); BASOPHIL # 0.1 TH/MM3 (0-0.2); BASOPHIL % 0.5 % (0.0-2.0); EOSINOPHIL % 0.3 % (0.0-4.0); HEMATOCRIT 22.8 % (39.0-51.0); HEMOGLOBIN 7.1 GM/DL (13.0-17.0); LYMPH % 9.4 % (9.0-44.0); LYMPHOCYTE # 0.9 TH/MM3 (1.0-4.8); MEAN CELL VOLUME 87.1 FL (80.0-100.0); MEAN CORPUSCULAR HEMOGLOBIN 27.2 PG (27.0-34.0); MEAN CORPUSCULAR HGB CONC 31.3 % (32.0-36.0); MEAN PLATELET VOLUME 9.2 FL (7.0-11.0); MONO % 10.8 % (0.0-8.0); PLATELET COUNT 328 TH/MM3 (150-450); RED BLOOD COUNT 2.62 MIL/MM3 (4.50-5.90); RED CELL DISTRIBUTION WIDTH 18.2 % (11.6-17.2); WHITE BLOOD COUNT 9.6 TH/MM3 (4.0-11.0)
[2017-05-04 17:41] LABS: INTERNATIONAL NORMALIZED RATIO 1.2 RATIO; PROTHROMBIN TIME - PATIENT 12.3 SEC (9.8-11.6)
[2017-05-04] MEDS ORDERED: SODIUM CHLOR 0.9% 250 ML INJ 250 ML IV ONE (18:00)
[2017-05-04 18:05] LABS: BICARBONATE 21.5 MEQ/L (21.0-32.0); CALCIUM 7.8 MG/DL (8.5-10.1); CREATININE 0.96 MG/DL (0.60-1.30)
[2017-05-04 18:08] LABS: TROPONIN I 0.15 NG/ML (0.02-0.05)
--- NOTE | 2017-05-04 19:16 | PD ---
HPI Chief Complaint: Respiratory Symptoms Time Seen by Provider: 15:11 Travel History International Travel<30 days: No Contact w/Intl Traveler<30days: No Traveled to known affect area: No History of Present Illness HPI 86-year-old male came to the emergency room with history of respiratory distress. Patient was brought in by EMS from the doctor's office. As per his daughter patient started getting short of breath this morning. He doesn't usually require oxygen at home and the family made him use his 's oxygen due to the shortness of breath. He was given some breathing treatments after which his symptoms calmed down. He was taken to see his doctor at 2 PM as per his regular appointment. However on his way he started getting short of breath again. Right at the doctor's office given his condition and the shortness of breath. Office staff call 911. As per the paramedics his oxygen saturation was in the 80s. Patient did not complain of any chest pain at this point. He was given 1 DuoNeb and oxygen and when he arrived his oxygen saturation on 3 L via nasal cannula was 97%. He was feeling better. He does have history of COPD. FORMERLY [facility] Past Medical History Narrative Medical List of his past medical, surgical, social and family history is reviewed from the nursing note. 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) Tetanus Vaccination: < 5 Years Influenza Vaccination: Yes Past Surgical History Abdominal Surgery: No AICD: Yes Body Medical Devices: PACER, STENTS Cardiac Surgery: Yes Ear Surgery: Yes (SKIN CANCER) Endocrine Surgery: No Eye Surgery: Yes (LASIK) Genitourinary Surgery: No Joint Replacement: No Neurologic Surgery: No Oral Surgery: No Pacemaker: Yes (GUIDANT - [employer]) Thoracic Surgery: No Other Surgery: Yes (CATERACT) Social History Alcohol Use: No Tobacco Use: No Substance Use: No Allergies-Medications (Allergen,Severity, Reaction): Coded Allergies: No Known Allergies (Verified Allergy, Unknown, 05/04/17) Comments No known drug allergies Reported Meds & Prescriptions Reported Meds & Active Scripts Active Reported Metformin (Metformin HCl) 500 Mg Tab 500 Mg PO TIDPC Aspirin 81 Mg Chew 81 Mg CHEW DAILY Rivastigmine Patch (Rivastigmine) 9.5 mg/24 hr Patch 1 Patch T-DERMAL DAILY Lisinopril 20 Mg Tab 20 Mg PO DAILY Carvedilol 6.25 Mg Tab 6.25 Mg PO BID Trazodone (Trazodone HCl) 50 Mg Tab 50 Mg PO HS Narrative Medication List of his home medications as reviewed from the nursing note. Review of Systems Except as stated in HPI: all other systems reviewed are Neg Respiratory: Positive: Shortness of Breath Physical Exam Narrative GENERAL: Awake, alert, elderly, frail, moderate distress SKIN: Focused skin assessment warm/dry. HEAD: Atraumatic. Normocephalic. EYES: Pupils equal and round. No scleral icterus. No injection or drainage. ENT: No nasal bleeding or discharge. Mucous membranes pink and moist. NECK: Trachea midline. No JVD. CARDIOVASCULAR: Regular rate and rhythm. No murmur appreciated. RESPIRATORY: No accessory muscle use. Clear to auscultation. Breath sounds equal bilaterally. GASTROINTESTINAL: Abdomen soft, non-tender, nondistended. Hepatic and splenic margins not palpable. MUSCULOSKELETAL: No obvious deformities. No clubbing. No cyanosis. No edema. NEUROLOGICAL: Awake and alert. No obvious cranial nerve deficits. Motor grossly within normal limits. Normal speech. PSYCHIATRIC: Appropriate mood and affect; insight and judgment normal. Data Data Last Documented VS Orders Orders Complete Blood Count With Diff (05/04/17 15:21) Basic Metabolic Panel (Bmp) (05/04/17 15:21) B-Type Natriuretic Peptide (05/04/17 15:21) Prothrombin Time / Inr (Pt) (05/04/17 15:21) Troponin I (05/04/17 15:21) Urinalysis - C+S If Indicated (05/04/17 15:21) Blood Culture (05/04/17 15:21) Iv Access Insert/Monitor (05/04/17 15:21) Ecg Monitoring (05/04/17 15:21) Oximetry (05/04/17 15:21) Oxygen Administration (05/04/17 15:21) Chest, Single Ap (05/04/17 15:21) Sodium Chloride 0.9% Flush (Ns Flush) (05/04/17 15:30) Methylprednisolone So Succ Inj (Solumedr (05/04/17 15:30) Albuterol Neb (Albuterol Neb) (05/04/17 16:30) Electrocardiogram (05/04/17 15:08) Type And Screen (05/04/17 17:59) Red Blood Cells (Rbc) (05/04/17 17:59) Sodium Chlor 0.9% 250 Ml Inj (Ns 250 Ml (05/04/17 18:00) Admit Order (Ed Use Only) (05/04/17 19:07) Labs Laboratory Tests Test 05/04/17 16:20 White Blood Count 9.6 TH/MM3 Red Blood Count 2.62 MIL/MM3 Hemoglobin 7.1 GM/DL Hematocrit 22.8 % Mean Corpuscular Volume 87.1 FL Mean Corpuscular Hemoglobin 27.2 PG Mean Corpuscular Hemoglobin Concent 31.3 % Red Cell Distribution Width 18.2 % Platelet Count 328 TH/MM3 Mean Platelet Volume 9.2 FL Neutrophils (%) (Auto) 79.0 % Lymphocytes (%) (Auto) 9.4 % Monocytes (%) (Auto) 10.8 % Eosinophils (%) (Auto) 0.3 % Basophils (%) (Auto) 0.5 % Neutrophils # (Auto) 7.6 TH/MM3 Lymphocytes # (Auto) 0.9 TH/MM3 Monocytes # (Auto) 1.0 TH/MM3 Eosinophils # (Auto) 0.0 TH/MM3 Basophils # (Auto) 0.1 TH/MM3 CBC Comment DIFF FINAL Differential Comment Prothrombin Time 12.3 SEC Prothromb Time International Ratio 1.2 RATIO Blood Urea Nitrogen 21 MG/DL Creatinine 0.96 MG/DL Random Glucose 138 MG/DL Calcium Level 7.8 MG/DL Sodium Level 143 MEQ/L Potassium Level 4.0 MEQ/L Chloride Level 110 MEQ/L Carbon Dioxide Level 21.5 MEQ/L Anion Gap 12 MEQ/L Estimat Glomerular Filtration Rate 75 ML/MIN Troponin I 0.15 NG/ML B-Type Natriuretic Peptide 1379 PG/ML MDM Medical Decision Making Medical Screen Exam Complete: Yes Emergency Medical Condition: Yes Medical Record Reviewed: Yes Interpretation(s) Twelve-lead EKG was reviewed by me. Normal sinus rhythm, normal axis, interventricular conduction delay, right bundle branch block. Heart rate of 80 bpm. Differential Diagnosis COPD exacerbation, pneumonia, pleural effusion, CHF Narrative Course 7:14 PM blood test results are back. Patient is anemic. Also his troponin is elevated and BNP is elevated. Patient was given initially IV Solu-Medrol by me. I discussed all these test results with the patient and his daughter. Patient will require to be admitted. I have also ordered 2 units of blood transfusion. Patient currently does not have a director of officiating. Patient should go to [facility] given these test results. Critical Care Narrative Aggregate critical care time was 45 minutes. Time to perform other separately billable procedures was not included in the critical care time. My time did not include minutes spent treating any other patients simultaneously or on activities that did not directly contribute to the patient's treatment. The services I provided to this patient were to treat and/or prevent clinically significant deterioration that could result in: Respiratory distress, elevated troponin, CHF, symptomatically anemia I provided critical care services requiring my management, as noted below: Chart data review, documentation time, medication orders and management, vital sign assessments/reviewing monitor data, ordering and reviewing lab tests, ordering and interpreting/reviewing x-rays and diagnostic studies, care of the patient and discussion of the patient with the admitting physicians. Procedures EKG Prior to Arrival: Yes HemaPrompt Point of Care Internal Pos. & Neg. Controls: Passed Fecal Specimen Occult Blood: Negative Diagnosis Primary Impression: Respiratory distress Additional Impressions: Elevated troponin I level Symptomatic anemia CHF (congestive heart failure) Qualified Codes: I50.9 - Heart failure, unspecified Admitting Information Admitting Physician Requests: Admit Scripts Oxygen (O2) (Oxygen (O2)) Device LITER ADRIANO.CANULA CONTINUOUS for Prevent Hypoxemia, #2 Oxygen Concentrator Portable Gaseous 2 L/min via Nasal Canula Continuous For 99 months Prov: Lucy Razo MD 05/07/17 Rob Maldonado MD May 04, 2017 19:16
--- NOTE | 2017-05-04 19:57 | HHI.HP ---
[facility] Service [facility] Primary Care Physician Lola Ross MD Admission Diagnosis respiratory distress, elevated troponin, CHF exacerbation Diagnoses: Travel History International Travel<30 Days: No Contact w/Intl Traveler <30 Da: No Traveled to Known Affected Are: No History of Present Illness History from patient, family members at the bedside, ER physician communication , and review of medical records. Patient himself is elderly gentleman with baseline dementia. His daughter and son-in-law are at the bedside. His son-in-law lives with patient and patient's and takes care of the patient as a full-time caregiver. The son-in-law stated that patient was having quite a bit of cough yesterday. An early today morning, the patient woke this son-in-law up around 6 AM. He told the son-in-law that he could not breathe and ask him to call 911. The son-in-law thought that patient was having an anxiety attack and therefore told him to calm himself down and gave oxygen that is of his 's. I around 9 AM, the son-in-law called PCP and made an appointment to go see PCP. While on the way, patient was starting to have heavy breathing, tachypnea. As soon as they got to the PCP office, the staff called 911. Son-in-law reported the patient was also extremely pale and oxygen saturation was low according to the office staff. In the emergency room, patient was saturating around 97% on 3 L nasal cannula. According to the family, patient's baseline is that he is able to tell the family if he has abnormal stools. He usually goes to bathroom on his own and does not require assistance. He walks with a walker by himself. Son-in-law and daughter stated the patient and his has been mostly sleeping too much all day long both day and night. As for his they know, there was no black stools or red stools or blood in his urine. Patient himself is unclear whether he sees any black stool. At one point he stated he hadn't and then another point he would say he did not. He does have history of hemorrhoids. Son-in-law stated that patient was having cough but no fever and was really looking very well over the weekend. 2 weeks ago, patient had a fall which made him with some skin abrasion on his right upper extremity. He did not go to any emergency room at that time and there was no residual deficit or illness that the family noted after the fall. Family also denies any peripheral edema. Review of Systems ROS Limitations: Poor Historian Except as stated in HPI: all other systems reviewed are Neg Past Family Social History Past Medical History htn dm cad- stent- 2002 ppm- 2002 s/p aicd copd- but not on oxygen at home or inhalors chronic smoker - even now PAD- s/p fempop by Dr Colbert 2016 Past Surgical History stent for cardiac fempop aicd/ppm cataract sx Allergies: Coded Allergies: No Known Allergies (Verified Allergy, Unknown, 05/04/17) Family History sister- dm mother- heart issues father- heart issues daughter - cva, seizures, thyroid issues, loop monitor another daughter - kidney other sons- cardiac arrthymias- loop monitor Social History heavy smoker- now only one every 2 weeks no etoh abuse no drugs lives with your and son in law Physical Exam Vital Signs Vital Signs Date Time Temp Pulse Resp B/P (MAP) Pulse Ox O2 Delivery O2 Flow Rate FiO2 05/04/17 17:26 97.9 89 20 129/67 (87) 98 Nasal Cannula 2.00 05/04/17 15:21 97 Nasal Cannula 2.00 05/04/17 15:21 22 97 Nasal Cannula 2.00 05/04/17 15:05 73 24 98 Nasal Cannula 05/04/17 15:02 98.3 84 22 134/63 (86) 97 Physical Exam GENERAL: This is a thin elderly gentleman, looks pale, very pleasant, not in acute distress. Awake but not really able to remember proper history. Answers in circles. SKIN: No rashes, ecchymoses or lesions. Cool and dry. HEAD: Atraumatic. Normocephalic. No temporal or scalp tenderness. EYES: No scleral icterus. No injection or drainage. ENT: Nose without bleeding, purulent drainage or septal hematoma. Airway patent. NECK: Trachea midline. No JVD . Supple, nontender, no meningeal signs. CARDIOVASCULAR: Regular rate and rhythm without murmurs, gallops, or rubs. RESPIRATORY: Bilaterally decreased air entry. Has some coarse crepitations at the bases. GASTROINTESTINAL: Abdomen soft, non-tender, nondistended. No guarding. MUSCULOSKELETAL: Extremities without clubbing, cyanosis, or edema. No calf tenderness. NEUROLOGICAL: Awake and alert. Motor and sensory grossly within normal limits Normal speech. Laboratory Laboratory Tests Test 05/04/17 16:20 White Blood Count 9.6 Red Blood Count 2.62 Hemoglobin 7.1 Hematocrit 22.8 Mean Corpuscular Volume 87.1 Mean Corpuscular Hemoglobin 27.2 Mean Corpuscular Hemoglobin Concent 31.3 Red Cell Distribution Width 18.2 Platelet Count 328 Mean Platelet Volume 9.2 Neutrophils (%) (Auto) 79.0 Lymphocytes (%) (Auto) 9.4 Monocytes (%) (Auto) 10.8 Eosinophils (%) (Auto) 0.3 Basophils (%) (Auto) 0.5 Neutrophils # (Auto) 7.6 Lymphocytes # (Auto) 0.9 Monocytes # (Auto) 1.0 Eosinophils # (Auto) 0.0 Basophils # (Auto) 0.1 CBC Comment DIFF FINAL Differential Comment Prothrombin Time 12.3 Prothromb Time International Ratio 1.2 Blood Urea Nitrogen 21 Creatinine 0.96 Random Glucose 138 Calcium Level 7.8 Sodium Level 143 Potassium Level 4.0 Chloride Level 110 Carbon Dioxide Level 21.5 Anion Gap 12 Estimat Glomerular Filtration Rate 75 Troponin I 0.15 B-Type Natriuretic Peptide 1379 Date/Time Source Procedure Growth Status 05/04/17 18:10 Blood Peripheral Aerobic Blood Culture Pending Received 05/04/17 18:10 Blood Peripheral Anaerobic Blood Culture Pending Received Result Diagram: 05/04/17 1620 05/04/17 1620 Imaging Last 48 hours Impressions Chest X-Ray 05/04/17 1521 Signed Impressions: Service Date/Time: Thursday, May 04, 2017 15:29 - CONCLUSION: 1. Acute bilateral airspace disease. 2. COPD. 3. Stable pacemaker. MD Arias Cleveland VTE Risk Assessment Arias VTE Risk Assessment: Mod/High Risk (score >= 2) Caprini Risk Assessment Model Point Value = 1 Point Value = 2 Point Value = 3 Point Value = 5 Age 41-60 Minor surgery BMI > 25 kg/m2 Swollen legs Varicose veins or History of unexplained or recurrent spontaneous Oral contraceptives or hormone replacement Sepsis (< 1 month) Serious lung disease, including pneumonia (< 1 month) Abnormal pulmonary function Acute myocardial infarction Congestive heart failure (< 1 month) History of inflammatory bowel disease Medical patient at bed rest Age 61-74 Arthroscopic surgery Major open surgery (> 45 min) Laparoscopic surgery (> 45 min) Malignancy Confined to bed (> 72 hours) Immobilizing plaster cast Central venous access Age >= 75 History of VTE Family history of VTE Factor V Leiden Prothrombin [id number] Lupus anticoagulant Anticardiolipin antibodies Elevated serum homocysteine Heparin-induced thrombocytopenia Other congenital or acquired thrombophilia Stroke (< 1 month) Elective arthroplasty Hip, pelvis, or leg fracture Acute spinal cord injury (< 1 month) Prophylaxis Regimen Total Risk Factor Score Risk Level Prophylaxis Regimen 0-1 Low Early ambulation 2 Moderate Order ONE of the following: *Sequential Compression Device (SCD) *Heparin 5000 units SQ BID 3-4 Higher Order ONE of the following medications: *Heparin 5000 units SQ TID *Enoxaparin/Lovenox 40 mg SQ daily (WT < 150 kg, CrCl > 30 mL/min) *Enoxaparin/Lovenox 30 mg SQ daily (WT < 150 kg, CrCl > 10-29 mL/min) *Enoxaparin/Lovenox 30 mg SQ BID (WT < 150 kg, CrCl > 30 mL/min) AND/OR *Sequential Compression Device (SCD) 5 or more Highest Order ONE of the following medications: *Heparin 5000 units SQ TID (Preferred with Epidurals) *Enoxaparin/Lovenox 40 mg SQ daily (WT < 150 kg, CrCl > 30 mL/min) *Enoxaparin/Lovenox 30 mg SQ daily (WT < 150 kg, CrCl > 10-29 mL/min) *Enoxaparin/Lovenox 30 mg SQ BID (WT < 150 kg, CrCl > 30 mL/min) AND *Sequential Compression Device (SCD) Assessment and Plan Assessment and Plan Impression: dyspnea- multifactorial- new onset chf, vs ischemia vs acute blood loss anemia anemia- with cardiac risk factors elevated troponin- r/o ACS elevated BNP- with dyspnea- new onset CHF anemia - with significant drop in hgb from 3 months ago tactile fever- suspect underlying pneumonia htn dm cad- stent- 2002 ppm- 2003 s/p aicd copd- but not on oxygen at home or inhalors chronic smoker - even now PAD- s/p fempop by Dr Colbert 2016 Plan: transfuse 2 units prbc each unit over 4 hrs give lasix 40mg iv before transfusion start give lasix 20mg iv after each unit prbc serial cardiac enzymes and ekg echo cardiology consult monitor in cic resume home dose beta blockers, statins hold asa stool for guiaic gi consult ua, urine cx also start on levofloxacin 500mg po daily hold metformin monitor fingersticks closely - hypoglycemic protocol dvt prophylaxis with SCD GI prophylaixs on pantoprazole Discussed Condition With patient, daughter and son in law at bedside, er Physician Certification 2 Midnight Certification Type: Admission for Inpatient Services Order for Inpatient Services The services are ordered in accordance with Medicare regulations or non- Medicare payer requirements, as applicable. In the case of services not specified as inpatient-only, they are appropriately provided as inpatient services in accordance with the 2-midnight benchmark. Estimated LOS (days): 4 days is the estimated time the patient will need to remain in the hospital, assuming treatment plan goals are met and no additional complications. Post-Hospital Plan: Home Jamison Simms MD May 04, 2017 19:57
[2017-05-04] MEDS ORDERED: DEXTROSE 50% IN WATER 50 ML VIAL(D50) IV PUSH PRN (20:30)
[2017-05-04] MEDS ORDERED: NALOXONE HCL 0.4 MG/ML AMP IV PUSH PRN (20:30)
[2017-05-04] MEDS ORDERED: GLUCAGON 1 MG/ML VIAL IM PRN (20:30)
[2017-05-04 20:46] VITALS: BP 129/60; PULSE 94; RESP 19; TEMP 97.9; O2SAT 96
[2017-05-04] MEDS ORDERED: FUROSEMIDE 40 MG/4 ML VIAL IV PUSH ONE (21:00)
[2017-05-04 21:18] VITALS: BP 124/64; PULSE 91; RESP 20; TEMP 97.9; O2SAT 96
[2017-05-04] MEDS: LEVOFLOXACIN 500 MG TAB PO SCH (21:20)
[2017-05-04] MEDS: PANTOPRAZOLE SODIUM 40 MG VIAL IV PUSH SCH (21:28)
[2017-05-04] MEDS: CARVEDILOL 6.25 MG TAB PO SCH (21:41)
[2017-05-04] MEDS ORDERED: COUM5TAB PO (21:49)
[2017-05-04] MEDS: SODIUM CHLORIDE 0.9% FLUSH 10 ML FLUSH IV FLUSH SCH (21:54)
[2017-05-04 21:56] LABS: BILIRUBIN, URINE NEG (NEG); BLOOD, URINE NEG (NEG); GLUCOSE,URINE NEG (NEG); KETONE, URINE 10 mg/dL (NEG); MUCUS URINE FEW /lpf (OCC); NITRITE,URINE NEG (NEG); SQUAMOUS EPITHELIAL CELL URINE <1 /hpf (0-5); URINE COLOR YELLOW (YELLW/STRAW); URINE LEUKOCYTE ESTERASE NEG (NEG)
[2017-05-04 23:00] VITALS: BP 131/69; PULSE 89; RESP 24; TEMP 98; O2SAT 94
[2017-05-04 23:02] LABS: TROPONIN I 0.18 NG/ML (0.02-0.05)
[2017-05-05] VITALS (24 sets, daily range): BP systolic 99–147; BP diastolic 50–85; PULSE 68–98; RESP 18–25; TEMP 97.9–98.8; O2SAT 92–97
[2017-05-05] MEDS: RESP: ALBUTEROL 2.5 MG/IPRATROPIUM 0.5 MG NEB (PRN) NEB ×2 (00:18→03:35)
[2017-05-05] MEDS: SODIUM CHLORIDE 0.9% FLUSH 10 ML FLUSH IV FLUSH PRN ×2 (01:05→05:26)
[2017-05-05] MEDS: FUROSEMIDE 20 MG/2 ML VIAL IV PUSH PRN ×2 (01:05→05:25)
--- NOTE | 2017-05-05 08:43 | HHI.PR ---
Subjective Remarks Pt complains that he didn't sleep at all last night. Per RN, usually takes something such as tylenol pm. Pt complains of back pain but per son in law who is present, this is chronic for him. Pt's son in law tells me that he is a DNR and son will be bringing paperwork in. Pt states he feels better compared to admission. No worsening SOB, no chest pains. Feels his throat is dry No bleeding Per son in law, he has a hx of hemorrhoids but hasn't reported any bleeding at home. Objective Vitals Vital Signs Date Time Temp Pulse Resp B/P (MAP) Pulse Ox O2 Delivery O2 Flow Rate FiO2 05/05/17 07:47 97.9 94 20 142/73 (96) 97 05/05/17 04:36 98.6 90 24 133/65 95 05/05/17 04:00 98.6 88 20 138/66 94 05/05/17 03:35 93 Nasal Cannula 3.00 05/05/17 03:00 98.8 90 22 147/85 94 05/05/17 03:00 98.6 90 22 147/85 (105) 94 05/05/17 01:37 98.0 89 18 139/76 96 05/05/17 00:18 93 Nasal Cannula 3.00 05/05/17 00:00 98.6 25 139/76 95 05/04/17 23:09 05/04/17 23:00 98.0 89 24 131/69 (89) 94 05/04/17 21:18 97.9 91 20 124/64 96 05/04/17 20:46 97.9 94 19 129/60 96 05/04/17 17:26 97.9 89 20 129/67 (87) 98 Nasal Cannula 2.00 05/04/17 15:21 97 Nasal Cannula 2.00 05/04/17 15:21 22 97 Nasal Cannula 2.00 05/04/17 15:05 73 24 98 Nasal Cannula 05/04/17 15:02 98.3 84 22 134/63 (86) 97 I/O 05/04/17 05/04/17 05/04/17 05/05/17 05/05/17 05/05/17 07:00 15:00 23:00 07:00 15:00 23:00 Intake Total 950 ml Output Total 600 ml Balance 350 ml Intake Oral 0 ml Packed Cells 800 ml Blood Product IV Normal Saline Flush 150 ml Output Urine Total 600 ml Stool Total 0 ml Result Diagram: 05/04/17 1620 05/04/17 1620 Imaging Last Impressions Chest X-Ray 05/04/17 1521 Signed Impressions: Service Date/Time: Thursday, May 04, 2017 15:29 - CONCLUSION: 1. Acute bilateral airspace disease. 2. COPD. 3. Stable pacemaker. Orlin Ortiz MD Objective Remarks GENERAL: Elderly male, laying in bed. ENT: lips appear dry. NECK: Trachea midline. CARDIOVASCULAR: distant heart sounds but regular rate and rhythm without murmurs RESPIRATORY: Appear Clear to auscultation. Breath sounds equal bilaterally. No wheezes GASTROINTESTINAL: Abdomen soft, non-tender, nondistended. No guarding. MUSCULOSKELETAL: Extremities without edema. moves extremities NEUROLOGICAL: Awake and alert. Normal speech. A/P Assessment and Plan new onset CHF /dyspnea- multifactorial- seems to be improving. BNP at 1379 on admission. on coreg. Elevated serial trops thus far. ECHO ordered. s/p lasix. give lasix 20mg po daily. Cards consulted. Awaiting their recs. lasix 20mg po daily. once diet resumed, will need hearth healthy diet w fluid restrictions. Monitor weight daily. severe anemia- with cardiac risk factors- Hb 7.1 on admission. No acute blood loss reported overnight. s/p 2 units PRBC. repeat Hb pending. NPO a this time. transfuse if Hb <8. GI consulted. hold ASA due to bleed. elevated troponin- serial trop elevated at 0.15-->0.18, third pending. no active chest pains. Cards consulted. awaiting final recs tactile fever- suspect underlying pneumonia- currently being treated w levaquin. Blood cx pending. f/u htn- stable on home meds dm- stable. hold metformin while in hospital. Monitor BS and added Low dose ISS. cad- stent- 2002 ppm- 2002 s/p aicd copd- but not on oxygen at home or inhalors chronic smoker - even now PAD- s/p fempop by Dr Colbert 2016 DVT proph: chemical prophylaxis contraindicated due to severe anemia. SCD's Karina Zimmer MD May 05, 2017 08:43
[2017-05-05] MEDS ORDERED: GLUCAGON 1 MG/ML VIAL OTHER PRN (08:45)
[2017-05-05] MEDS ORDERED: LORazepam 0.5 MG TAB PO PRN (08:45)
[2017-05-05] MEDS ORDERED: DEXTROSE 50% IN WATER 50 ML VIAL(D50) IV PUSH PRN (08:45)
[2017-05-05] MEDS: LISINOPRIL 20 MG TAB PO SCH (09:17)
[2017-05-05] MEDS: PANTOPRAZOLE SODIUM 40 MG VIAL IV PUSH SCH ×2 (09:17→21:22)
[2017-05-05] MEDS: CARVEDILOL 6.25 MG TAB PO SCH (09:17)
[2017-05-05] MEDS: RIVASTIGMINE 9.5 MG/24 HOUR PATCH T-DERMAL SCH (09:19)
[2017-05-05] MEDS: SODIUM CHLORIDE 0.9% FLUSH 10 ML FLUSH IV FLUSH SCH ×2 (09:19→21:22)
[2017-05-05 09:53] LABS: AUTOMATED NEUTROPHIL # 8.5 TH/MM3 (1.8-7.7); BASOPHIL % 0.1 % (0.0-2.0); HEMATOCRIT 35.1 % (39.0-51.0); HEMOGLOBIN 11.4 GM/DL (13.0-17.0); LYMPH % 7.8 % (9.0-44.0); LYMPHOCYTE # 0.8 TH/MM3 (1.0-4.8); MEAN CELL VOLUME 82.6 FL (80.0-100.0); MEAN CORPUSCULAR HEMOGLOBIN 26.9 PG (27.0-34.0); MEAN CORPUSCULAR HGB CONC 32.6 % (32.0-36.0); MONO % 10.6 % (0.0-8.0); MONOCYTE # 1.1 TH/MM3 (0-0.9); NEUT % 81.5 % (16.0-70.0); PLATELET COUNT 350 TH/MM3 (150-450); RED BLOOD COUNT 4.24 MIL/MM3 (4.50-5.90); RED CELL DISTRIBUTION WIDTH 19.3 % (11.6-17.2); WHITE BLOOD COUNT 10.4 TH/MM3 (4.0-11.0)
[2017-05-05 10:25] LABS: CREATININE 1.17 MG/DL (0.60-1.30)
[2017-05-05 10:32] LABS: TROPONIN I 0.79 NG/ML (0.02-0.05)
[2017-05-05] MEDS: INSULIN ASPART SUPPLEMENTAL SCALE SQ SCH ×3 (12:02→21:00)
--- NOTE | 2017-05-05 12:09 | ECHRPT ---
Indication: Heart Failure CONCLUSIONS The left ventricular systolic function is severely reduced with an estimated ejection fraction in th e range of 25-30%. Mild concentric left ventricular hypertrophy. Normal left ventricular size. There is a pacemaker wire present in the right atrial cavity. Aortic valve sclerosis is present. Trace aortic valve regurgitation. There is mild tricuspid valve regurgitation. The estimated pulmonary arterial pressure is 36.9 mmHg. moderate to severe mitral valve regurgitation BP: 133 / 65 HR: 90 Rhythm: Sinus MEASUREMENTS (Male / Female) Normal Values Technical Quality:Fair 2D ECHO LV Diastolic Diameter PLAX 5.2 cm 4.2 - 5.9 / 3.9 - 5.3 cm LV Systolic Diameter PLAX 4.5 cm IVS Diastolic Thickness 1.1 cm 0.6 - 1.0 / 0.6 - 0.9 cm LVPW Diastolic Thickness 1.1 cm 0.6 - 1.0 / 0.6 - 0.9 cm LV Relative Wall Thickness 0.4 RV Internal Dim ED PLAX 2.7 cm LVOT Diameter 2.2 cm LA Systolic Diameter LX 3.9 cm 3.0 - 4.0 / 2.7 - 3.8 cm M-MODE Aortic Root Diameter MM 3.4 cm LA Systolic Diameter MM 3.8 cm LA Ao Ratio MM 1.1 AV Cusp Separation MM 2.0 cm DOPPLER AV Peak Velocity 73.0 cm/s AV Peak Gradient 2.1 mmHg LVOT Peak Velocity 56.2 cm/s LVOT Peak Gradient 1.3 mmHg AV Area Cont Eq pk 2.9 cm MV Area PHT 6.1 cm Mitral E Point Velocity 82.9 cm/s Mitral A Point Velocity 102.0 cm/s Mitral E to A Ratio 0.8 LV E' Lateral Velocity 7.9 cm/s Mitral E to LV E' Lateral Ratio 10.5 LV E' Septal Velocity 6.0 cm/s Mitral E to LV E' Septal Ratio 13.7 TR Peak Velocity 259.5 cm/s TR Peak Gradient 26.9 mmHg Right Atrial Pressure 10.0 mmHg Pulmonary Artery Systolic Pressu 36.9 mmHg Right Ventricular Systolic Press 36.9 mmHg FINDINGS LEFT VENTRICLE The left ventricular systolic function is severely reduced with an estimated ejection fraction in th e range of 25-30%. Mild concentric left ventricular hypertrophy. Normal left ventricular size. RIGHT VENTRICLE Normal right ventricular size and systolic function. LEFT ATRIUM The left atrial size is normal. RIGHT ATRIUM There is a pacemaker wire present in the right atrial cavity. ATRIAL SEPTUM Normal atrial septal thickness without atrial level shunting by limited color doppler interrogation. AORTA The aortic root and proximal ascending aorta are normal in size on limited imaging. MITRAL VALVE Structurally normal mitral valve. No mitral valve stenosis or regurgitation. AORTIC VALVE Aortic valve sclerosis is present. Trace aortic valve regurgitation. TRICUSPID VALVE Structurally normal tricuspid valve. There is mild tricuspid valve regurgitation. The estimated pulmonary arterial pressure is 36.9 mmHg. PULMONARY VALVE No pulmonary valve regurgitation or stenosis. VESSELS The inferior vena cava is normal in size. PERICARDIUM No pericardial effusion. Miguelangel iRchards MD, FACC, FSCAI (Electronically Signed) Final Date:05 May 2017 12:07
--- NOTE | 2017-05-05 12:24 | PD.CONS ---
HPI History of Present Illness This is a 86 year old with PMH significant for HTN, DM, CAD S/P stent, PPM S/P AICD, COPD, and PAD S/P fempop. Pt lives at home with a live in director of critical care but per sun in law at bedside he is there visiting him frequently. Pt has a baseline of dementia but is able to answer some questions appropriately. Per son-in law pt was complaining of cough and SOB yesterday, he brought him to the PCP who sent him to the ER because of reported low O2 sats and tachypnea. During transport via [facility] paramedics reports pts O2 sats to be in the 80s. Pt now admitted to [facility] and has been found to have serial elevated troponins and ST elevation on ECG. Our service has been admitted to evaluate pt for anemia. Per RN she received in report the pt was hemoccult positive however I see no record of this in the ER or admitting notes. Per son- in law there has been no reports of BRBPR or melena. Pt has not been complaining of any abdominal pain, nausea, or emesis. H/H was 7.1/22.8 on admission now S/P 2 U PRBCs is currently 11.4/35.1. Per son-in law he thinks pt may have had history of anemia requiring B12 and iron supplementation. Pt is not on blood thinners but does take a daily ASA. He thinks his last colonoscopy was over ten years ago, states normal exam. The son-in law is not sure if pt has ever had an EGD. (Mita Wright) PFSH Past Medical History htn dm cad- stent- 2002 ppm- 2002 s/p aicd copd- but not on oxygen at home or inhalors chronic smoker - even now PAD- s/p fempop by Dr Colbert 2016 Past Surgical History stent for cardiac fempop aicd/ppm cataract sx (Mita Wright) Coded Allergies: No Known Allergies (Verified Allergy, Unknown, 05/04/17) Family History sister- dm mother- heart issues father- heart issues daughter - cva, seizures, thyroid issues, loop monitor another daughter - kidney other sons- cardiac arrthymias- loop monitor Social History heavy smoker- now only one every 2 weeks no etoh abuse no drugs lives with your and son in law (Mita Wright JEMAL) Review of Systems Gastrointestinal: DENIES: Abdominal pain, Black stools, Bloody stools, Constipation, Diarrhea, Nausea, Vomiting (ChenteeliMita) GI Exam Vitals I&O Vital Signs Date Time Temp Pulse Resp B/P (MAP) Pulse Ox O2 Delivery O2 Flow Rate FiO2 05/05/17 11:50 98.0 85 20 140/71 (94) 94 05/05/17 10:00 84 05/05/17 09:00 98 05/05/17 08:00 94 05/05/17 07:47 97.9 94 20 142/73 (96) 97 05/05/17 07:00 97 05/05/17 04:36 98.6 90 24 133/65 95 05/05/17 04:00 98.6 88 20 138/66 94 05/05/17 03:35 93 Nasal Cannula 3.00 05/05/17 03:00 98.8 90 22 147/85 94 05/05/17 03:00 98.6 90 22 147/85 (105) 94 05/05/17 01:37 98.0 89 18 139/76 96 05/05/17 00:18 93 Nasal Cannula 3.00 05/05/17 00:00 98.6 25 139/76 95 05/04/17 23:09 05/04/17 23:00 98.0 89 24 131/69 (89) 94 05/04/17 21:18 97.9 91 20 124/64 96 05/04/17 20:46 97.9 94 19 129/60 96 05/04/17 17:26 97.9 89 20 129/67 (87) 98 Nasal Cannula 2.00 05/04/17 15:21 97 Nasal Cannula 2.00 05/04/17 15:21 22 97 Nasal Cannula 2.00 05/04/17 15:05 73 24 98 Nasal Cannula 05/04/17 15:02 98.3 84 22 134/63 (86) 97 I/O 05/04/17 05/04/17 05/04/17 05/05/17 05/05/17 05/05/17 07:00 15:00 23:00 07:00 15:00 23:00 Intake Total 950 ml Output Total 600 ml Balance 350 ml Intake Oral 0 ml Packed Cells 800 ml Blood Product IV Normal Saline Flush 150 ml Output Urine Total 600 ml Stool Total 0 ml Imaging Last Impressions Chest X-Ray 05/04/17 1521 Signed Impressions: Service Date/Time: Thursday, May 04, 2017 15:29 - CONCLUSION: 1. Acute bilateral airspace disease. 2. COPD. 3. Stable pacemaker. Orlin Ortiz MD Laboratory Test 05/04/17 16:20 05/04/17 21:00 05/04/17 22:10 05/05/17 09:13 White Blood Count 9.6 TH/MM3 10.4 TH/MM3 Red Blood Count 2.62 MIL/MM3 4.24 MIL/MM3 Hemoglobin 7.1 GM/DL 11.4 GM/DL Hematocrit 22.8 % 35.1 % Mean Corpuscular Volume 87.1 FL 82.6 FL Mean Corpuscular Hemoglobin 27.2 PG 26.9 PG Mean Corpuscular Hemoglobin Concent 31.3 % 32.6 % Red Cell Distribution Width 18.2 % 19.3 % Platelet Count 328 TH/MM3 350 TH/MM3 Mean Platelet Volume 9.2 FL 9.0 FL Neutrophils (%) (Auto) 79.0 % 81.5 % Lymphocytes (%) (Auto) 9.4 % 7.8 % Monocytes (%) (Auto) 10.8 % 10.6 % Eosinophils (%) (Auto) 0.3 % 0.0 % Basophils (%) (Auto) 0.5 % 0.1 % Neutrophils # (Auto) 7.6 TH/MM3 8.5 TH/MM3 Lymphocytes # (Auto) 0.9 TH/MM3 0.8 TH/MM3 Monocytes # (Auto) 1.0 TH/MM3 1.1 TH/MM3 Eosinophils # (Auto) 0.0 TH/MM3 0.0 TH/MM3 Basophils # (Auto) 0.1 TH/MM3 0.0 TH/MM3 CBC Comment DIFF FINAL DIFF FINAL Differential Comment Prothrombin Time 12.3 SEC Prothromb Time International Ratio 1.2 RATIO Blood Urea Nitrogen 21 MG/DL 29 MG/DL Creatinine 0.96 MG/DL 1.17 MG/DL Random Glucose 138 MG/DL 181 MG/DL Calcium Level 7.8 MG/DL 8.0 MG/DL Sodium Level 143 MEQ/L 140 MEQ/L Potassium Level 4.0 MEQ/L 3.7 MEQ/L Chloride Level 110 MEQ/L 109 MEQ/L Carbon Dioxide Level 21.5 MEQ/L 20.0 MEQ/L Anion Gap 12 MEQ/L 11 MEQ/L Estimat Glomerular Filtration Rate 75 ML/MIN 59 ML/MIN Troponin I 0.15 NG/ML 0.18 NG/ML 0.79 NG/ML B-Type Natriuretic Peptide 1379 PG/ML Urine Color YELLOW Urine Turbidity CLEAR Urine pH 6.0 Urine Specific [place] 1.019 Urine Protein TRACE mg/dL Urine Glucose (UA) NEG mg/dL Urine Ketones 10 mg/dL Urine Occult Blood NEG Urine Nitrite NEG Urine Bilirubin NEG Urine Urobilinogen LESS THAN 2.0 MG/DL Urine Leukocyte Esterase NEG Urine RBC LESS THAN 1 /hpf Urine WBC 2 /hpf Urine Squamous Epithelial Cells <1 /hpf Urine Mucus FEW /lpf Microscopic Urinalysis Comment CULT NOT INDICATED Total Creatine Kinase 101 U/L 145 U/L Date/Time Source Procedure Growth Status 05/04/17 18:10 Blood Peripheral Aerobic Blood Culture - Preliminary NO GROWTH IN 1 DAY Resulted 05/04/17 18:10 Blood Peripheral Anaerobic Blood Culture - Preliminary NO GROWTH IN 1 DAY Resulted Physical Examination HEENT: Normocephalic; atraumatic CHEST: Even/unlabored CARDIAC: RRR ABDOMEN: Soft, nondistended, nontender; bowel sounds active MACHINE SHOP SPECIALIST: Awake, confused but able to answer some questions appropriately (Mita Wright) Assessment and Plan Plan Assessment: - Anemia- H/H 7.1/22.8 on admission which is a significant drop from hgb of 13 from Jan 2017. S/P 2 u PRBCs currently 11.4/35.1. Per RN she received in report that pt was Hemoccult positive however I see no records of this in ER or attendings notes. Occult stool has been ordered but still in process. Per son-in law pt or pts neurological surgeon have not reported any GIB, emesis, or pt complaints of abdominal pain. No history of GIB. Not on blood thinners, takes ASA daily. Last colonoscopy over 10 years ago and states normal exam. Unsure if he has ever had EGD Son-in law thinks pt has had to take iron and B12 in the past - EKG changes with elevated troponin- significant cardiac history including stent placement- cardiology consult pending - Decreased O2 sats- per medics in route- currently 95% on 3 L O2 Pt is at very high risk for endoscopic procedures and unless there is evidence for active GIB and emergent need then we will defer until pt is more stable and that is also dependent on pts wishes when he is more stable regarding procedures. He is a DNR. Cardiology work up pending. Plan: Hemoccult stool Monitor H/H Notify GI if emergent need for procedures At this time pt is too high risk and unstable Cardiology consult pending Transfuse per attending Protonix Further recommendations based on clinical course Pt has been seen and examined by myself and Dr. Liriano and this note is written on his behalf (Mita Wright) Physician Comments Patient seen and examined Agree with above Patient with multiple comorbidities and high risk for GI procedures Recommend replacement therapy with iron and improved nutrition Would reserve endoscopy for urgent or emergent situations Not much to add at this point except continue with current supportive care and monitor labs and transfuse if needed Continue with PPI At this point not much to add from a GI perspective we will sign off (Will Liriano MD) Mita Wright May 05, 2017 12:24 Will Liriano MD May 05, 2017 21:35
--- NOTE | 2017-05-05 18:28 | MB ---
cc: Gilmar Forrester MD,Jamison MURCIA DATE: 05/05/2017 REFERRING PHYSICIAN: Dr. Jamison Simms. REASON FOR CONSULTATION: I was asked by Dr. Simms to evaluate the patient with abnormal troponin levels and history of coronary artery disease. HISTORY OF PRESENT ILLNESS: Heber Oreilly is an 86-year-old gentleman with a past medical history significant for coronary artery disease, status post stent RCA 2002, peripheral vascular disease, cardiomyopathy, status post AICD; his ejection fraction improved to normal, 65%, and his AICD battery was allowed to be depleted. He has a history of severe dementia and history is obtained from family at bedside. Apparently yesterday, he developed episodes of shortness of breath without chest pain. His shortness of breath was attributed to an anxiety attack. He went to see his PCP, but again developed shortness of breath. Upon arrival at the PCPs office, 911 was called. ER evaluation significant for troponins positive for preacute coronary syndrome and severe anemia. Family reports no history of recent chest pain suggestive of angina or congestive symptoms of orthopnea and paroxysmal nocturnal dyspnea. He is not able to provide reliable history. He has received 2 units of packed red blood cells since admission. MEDICATIONS PRIOR TO ADMISSION: 1. Metformin 500 mg t.i.d. ____. 2. Aspirin 81 mg daily. 3. Rivastigmine 9.5 mg patch daily. 4. Lisinopril 20 mg daily. 5. Carvedilol 6.25 mg b.i.d. 6. Trazodone 50 mg at bedtime. ALLERGIES: NO KNOWN DRUG ALLERGIES. PAST MEDICAL HISTORY: As above. He also has history of peripheral vascular disease status post bypass, depression, hypertension, status post CVA, and coronary artery disease. SOCIAL HISTORY: He does not smoke or drink alcohol. No illicit drug use. REVIEW OF SYSTEMS: As above. Family reports no recent fever, chills, coughing, sputum production. No recent gastrointestinal and genitourinary symptoms. PHYSICAL EXAMINATION: VITAL SIGNS: Pulse 90, blood pressure 140/71, O2 saturation 3 liters nasal cannula 92%, respirations 20. HEENT: He is anicteric. PERRLA. No xanthelasmas. NECK: Flat JVD. No carotid bruits. LUNGS: Clear to auscultation. CARDIOVASCULAR: Regular rate and rhythm. Soft I-II/ systolic murmur left lower sternal border. ABDOMEN: Soft and nontender. EXTREMITIES: Without peripheral edema. LABORATORY DATA: WBC 9.6; hemoglobin 7.1; hematocrit is 22.8; platelet count is 328,000. Sodium 143, potassium 4.0, BUN 21, creatinine 0.96. Troponin 0.15, 0.18, 0.79. BNP is 1379. INR is 1.2. IMAGING STUDIES: Chest x-ray: COPD, status post pacemaker, normal heart size, no CHF. DIAGNOSTIC STUDIES: ECG: Sinus rhythm, heart rate 84 beats per minute, normal axis, incomplete right bundle branch block, diffuse nonspecific ST-T abnormalities, 0.5-[address]-T segment depressions in V3-V5. IMPRESSION: 1. Shortness of breath, anxiety versus pulmonary congestion, mild congestive heart failure. 2. Troponins positive for acute coronary syndrome in the setting of known coronary artery disease, possibly type 2 acute coronary syndrome. 3. Severe anemia, upper versus lower gastrointestinal bleed. 4. Diabetes mellitus type 2. 5. Peripheral vascular disease, status post bypass. 6. History of cardiomyopathy with improved left ventricular ejection fraction. PLAN: 1. Transfuse to hemoglobin greater than 8.0. 2. Not able to anticoagulate due to possible gastrointestinal bleed. 3. Nitro paste 1 inch q.6 hours. 4. Increase Coreg 12.5 mg b.i.d. 5. Okay to have endoscopy to evaluate for source of gastrointestinal bleed. 6. Not a candidate for cardiac catheterization. Severe anemia, possible GI bleed precludes use of dual antiplatelets if stent is required. Additionally, he is not a candidate for bypass surgery should he have severe multivessel disease. 7. Discussed with family at length conservative expectant medical management is most prudent option. 8. Patient is DNR/DNI noted. Thank you for allowing me to contribute to the patient's care. Thank you for this consultation. MD GRAHAM VeraV/JAYCE , 05:52 PM , 06:26 PM
[2017-05-05] MEDS: NITROGLYCERIN 2% OINT 1 GM PACKET TOPICAL SCH (18:44)
[2017-05-05] MEDS ORDERED: ZOLPIDEM TARTRATE 5 MG TAB PO PRN (21:00)
[2017-05-05] MEDS: LEVOFLOXACIN 500 MG TAB PO SCH (21:22)
[2017-05-05] MEDS: CARVEDILOL 12.5 MG TAB PO SCH (21:22)
--- NOTE | 2017-05-05 22:34 | EKG ---
Date Performed: 05/05/2017 Time Performed: 01:27:54 PTAGE: 86 years EKG: Sinus rhythm . Right bundle branch block Inferior/lateral ST-T changes Abnormal ECG NO PREVIOUS TRACING Since the previous tracing, no significant change noted DOCTOR: Daryn Washburn Interpretating Date/Time 05/05/2017 22:33:41
--- NOTE | 2017-05-05 22:39 | EKG ---
Date Performed: 05/04/2017 Time Performed: 21:36:07 PTAGE: 86 years EKG: Sinus rhythm WITH SHORT DC INTERVAL POSSIBLE LEFT ATRIAL ENLARGEMENT RIGHT BUNDLE BRANCH BLOCK ABNORMAL ECG PREVIOUS TRACING : 05/04/2017 15.08 Since the previous tracing, no significant change noted DOCTOR: Daryn Washburn Interpretating Date/Time 05/05/2017 22:38:04
--- NOTE | 2017-05-05 22:54 | EKG ---
Date Performed: 05/04/2017 Time Performed: 15:08:02 PTAGE: 86 years EKG: Sinus rhythm WITH SHORT TX INTERVAL POSSIBLE LEFT ATRIAL ENLARGEMENT RIGHT BUNDLE BRANCH BLOCK ABNORMAL ECG PREVIOUS TRACING : 09/26/2016 20.38 Since the previous tracing, no significant change noted DOCTOR: Daryn Washburn Interpretating Date/Time 05/05/2017 22:53:58
[2017-05-06] VITALS (24 sets, daily range): BP systolic 89–113; BP diastolic 52–57; PULSE 60–80; RESP 18; TEMP 97.6–98.4; O2SAT 92–94
[2017-05-06 05:20] LABS: ALBUMIN 2.4 GM/DL (3.4-5.0); ALT (GPT) 22 U/L (12-78); AST (GOT) 18 U/L (15-37); BICARBONATE 24.1 MEQ/L (21.0-32.0); CALCIUM 7.6 MG/DL (8.5-10.1); CHLORIDE 111 MEQ/L (98-107); CREATININE 1.02 MG/DL (0.60-1.30); GLOMERULAR FILTRATION RATE 70 ML/MIN (>89); GLUCOSE,RANDOM 129 MG/DL (74-106); MAGNESIUM 1.7 MG/DL (1.5-2.5); SODIUM (NA) 144 MEQ/L (136-145)
[2017-05-06 05:22] LABS: ALKALINE PHOSPHATASE 90 U/L (45-117); TOTAL BILIRUBIN ADULT 0.8 MG/DL (0.2-1.0); TOTAL PROTEIN 5.3 GM/DL (6.4-8.2)
[2017-05-06 05:24] LABS: BLOOD UREA NITROGEN 30 MG/DL (7-18)
[2017-05-06] MEDS: NITROGLYCERIN 2% OINT 1 GM PACKET TOPICAL SCH ×4 (05:36→17:36)
[2017-05-06 05:46] LABS: HEMATOCRIT 31.2 % (39.0-51.0); HEMOGLOBIN 10.2 GM/DL (13.0-17.0); MEAN CELL VOLUME 82.5 FL (80.0-100.0); MEAN CORPUSCULAR HEMOGLOBIN 27.1 PG (27.0-34.0); MEAN CORPUSCULAR HGB CONC 32.8 % (32.0-36.0); PLATELET COUNT 298 TH/MM3 (150-450); RED BLOOD COUNT 3.79 MIL/MM3 (4.50-5.90); RED CELL DISTRIBUTION WIDTH 19.6 % (11.6-17.2); WHITE BLOOD COUNT 15.2 TH/MM3 (4.0-11.0)
[2017-05-06] MEDS: INSULIN ASPART SUPPLEMENTAL SCALE SQ SCH ×4 (08:00→22:14)
[2017-05-06] MEDS: RIVASTIGMINE 9.5 MG/24 HOUR PATCH T-DERMAL SCH (09:00)
[2017-05-06] MEDS: CARVEDILOL 12.5 MG TAB PO SCH ×2 (09:00→21:25)
[2017-05-06] MEDS: LISINOPRIL 20 MG TAB PO SCH (09:00)
[2017-05-06] MEDS: SODIUM CHLORIDE 0.9% FLUSH 10 ML FLUSH IV FLUSH SCH ×2 (09:00→21:25)
[2017-05-06] MEDS: PANTOPRAZOLE SODIUM 40 MG VIAL IV PUSH SCH ×2 (09:00→21:25)
[2017-05-06] MEDS ORDERED: INFLUENZA VIRUS VACCINE (QUADRIVALENT) 0.5 ML SYR IM ONE (10:00)
[2017-05-06] MEDS ORDERED: PNEUMOCOCCAL POLYVALENT INJ 25 MCG/0.5 ML SYR IM ONE (10:00)
[2017-05-06] MEDS: FUROSEMIDE 20 MG TAB PO SCH (11:31)
--- NOTE | 2017-05-06 16:21 | HHI.PR ---
Subjective Remarks Patient denies chest pain, sob improving afebrile no cough no melena reported by RN Objective Vitals Vital Signs Date Time Temp Pulse Resp B/P (MAP) Pulse Ox O2 Delivery O2 Flow Rate FiO2 05/06/17 15:01 97.9 71 18 111/56 (74) 92 05/06/17 13:01 72 05/06/17 12:00 68 05/06/17 11:30 97.9 71 18 103/53 (70) 93 05/06/17 11:00 62 05/06/17 10:12 94 Nasal Cannula 3.00 05/06/17 10:00 68 05/06/17 09:00 66 05/06/17 08:45 97.9 65 18 113/53 (73) 93 05/06/17 08:00 70 05/06/17 07:01 75 05/06/17 06:00 60 05/06/17 05:22 80 05/06/17 03:00 77 05/06/17 03:00 98.4 77 18 113/57 (75) 94 05/05/17 23:00 98.4 68 20 112/59 (76) 95 05/05/17 23:00 68 05/05/17 19:00 79 05/05/17 19:00 98.6 79 20 99/50 (66) 95 05/05/17 18:00 80 05/05/17 17:00 84 I/O 05/05/17 05/05/17 05/05/17 05/06/17 05/06/17 05/06/17 07:00 15:00 23:00 07:00 15:00 23:00 Intake Total 950 ml 240 ml 240 ml Output Total 600 ml 775 ml 400 ml Balance 350 ml -535 ml -160 ml Intake Oral 0 ml 240 ml 240 ml Packed Cells 800 ml Blood Product IV Normal Saline Flush 150 ml Output Urine Total 600 ml 775 ml 400 ml Stool Total 0 ml 0 ml Result Diagram: 05/06/174 05/06/17 0434 Imaging Last Impressions Chest X-Ray 05/04/17 1521 Signed Impressions: Service Date/Time: Thursday, May 04, 2017 15:29 - CONCLUSION: 1. Acute bilateral airspace disease. 2. COPD. 3. Stable pacemaker. Orlin Ortiz MD Objective Remarks AAOx3 nad good air entry BL , decreased at the bases S1S2 RRR abdomen soft, nt no edema in lower extremities Medications and IVs Current Medications Medications (Trade) Dose Ordered Sig/Darrin Route Start Time Stop Time Status Last Admin (Protonix Inj) 40 mg Q12HR IV PUSH 05/04/17 21:00 05/06/17 09:00 (Levaquin) 500 mg Q24H PO 05/04/17 21:00 05/05/17 21:22 (NS Flush) 2 ml UNSCH PRN IV FLUSH 05/04/17 20:30 05/05/17 05:26 (NS Flush) 2 ml BID IV FLUSH 05/04/17 21:00 05/06/17 09:00 (Narcan Inj) 0.4 mg UNSCH PRN IV PUSH 05/04/17 20:30 (Prinivil) 20 mg DAILY PO 05/05/17 09:00 05/06/17 09:00 (Exelon 9.5 Mg Patch.24hr) 1 patch DAILY T-DERMAL 05/05/17 09:00 05/06/17 09:00 (D50w (Vial) Inj) 50 ml UNSCH PRN IV PUSH 05/04/17 20:30 (Glucagon Inj) 1 mg STAT PRN IM 05/04/17 20:30 (Duoneb Neb) 1 ampule Q4HR NEB PRN NEB 05/05/17 00:15 05/05/17 03:35 (Ambien) 5 mg HS PRN PO 05/05/17 21:00 (NovoLOG SUPPLEMENTAL SCALE) 1 ACHS SLIDING SCALE SQ 05/05/17 12:00 05/05/17 21:00 (Lasix) 20 mg DAILY PO 05/06/17 09:00 05/06/17 11:31 (Ativan) 0.5 mg Q8H PRN PO 05/05/17 08:45 05/05/17 13:28 (Nitroglycerin 2% Oint) 1 inch Q6HR TOPICAL 05/05/17 18:00 05/06/17 11:31 (Coreg) 12.5 mg BID PO 05/05/17 21:00 05/06/17 09:00 (KCl) 30 meq ONCE ONCE PO 05/06/17 16:30 3/29/18 16:31 UNV A/P Problem List: (1) NSTEMI (non-ST elevated myocardial infarction) ICD Code: I21.4 - Non-ST elevation (NSTEMI) myocardial infarction Plan: Troponin elevation which peaked at 0.79. Cardiology consulted. Recommended medical management for now. (2) Severe anemia ICD Code: D64.9 - Anemia, unspecified Plan: with cardiac risk factors- Hb 7.1 on admission. No acute blood loss reported overnight. s/p 2 units PRBC. GI consulted. Recommended medical management since there is no evidence of active bleeding and due to patient's medical comorbidities including age, current and STEMI, history of COPD. Transfuse as needed for hemoglobin less than 8. Goal hemoglobin 9-10. (3) Acute systolic heart failure ICD Code: I50.21 - Acute systolic (congestive) heart failure Plan: Echo 25-30% Continue Lasix Cardiology consulted. Her healthy diet (4) HTN (hypertension) ICD Code: I10 - Essential (primary) hypertension Plan: Continue lisinopril and Coreg. (5) Pneumonia ICD Code: J18.9 - Pneumonia, unspecified organism Plan: Suspected pneumonia. Chest x-ray reviewed by me showed acute bilateral airspace disease. Patient currently on 3 L of oxygen. Continue supplemental oxygen to keep oxygen saturation more than 92%. Wean oxygen as tolerated. (6) COPD (chronic obstructive pulmonary disease) ICD Code: J44.9 - Chronic obstructive pulmonary disease, unspecified Plan: Not on oxygen at home or inhalers at home. We will start the patient on his Spiriva. Continue duo nebs as needed. Assessment and Plan GI prophylaxis: On PPI. DVT prophylaxis: SCDs, will chemoprophylaxis given severe anemia. Discharge Planning Pending clinical improvement and improvement oxygenation and stabilization of hemoglobin. Problem Qualifiers (1) HTN (hypertension): Qualified Codes: I10 - Essential (primary) hypertension (2) Pneumonia: Qualified Codes: J18.1 - Lobar pneumonia, unspecified organism (3) COPD (chronic obstructive pulmonary disease): Qualified Codes: J44.9 - Chronic obstructive pulmonary disease, unspecified Yfn Ruiz MD May 06, 2017 16:21
[2017-05-06] MEDS ORDERED: POTASSIUM CHLORIDE 10 MEQ CONTROLLED RELEASE TAB PO ONE (16:30)
--- NOTE | 2017-05-06 17:14 | PD.CARD.PN ---
Subjective Subjective Remarks FEELS BETTER NO COMPLAINTS OF CHEST PAIN OR SOB ECHO NOTED, CM LVEF 25-30% Objective Medications Current Medications Medications (Trade) Dose Ordered Sig/Darrin Route Start Time Stop Time Status Last Admin (Protonix Inj) 40 mg Q12HR IV PUSH 05/04/17 21:00 05/06/17 09:00 (Levaquin) 500 mg Q24H PO 05/04/17 21:00 05/05/17 21:22 (NS Flush) 2 ml UNSCH PRN IV FLUSH 05/04/17 20:30 05/05/17 05:26 (NS Flush) 2 ml BID IV FLUSH 05/04/17 21:00 05/06/17 09:00 (Narcan Inj) 0.4 mg UNSCH PRN IV PUSH 05/04/17 20:30 (Prinivil) 20 mg DAILY PO 05/05/17 09:00 05/06/17 09:00 (Exelon 9.5 Mg Patch.24hr) 1 patch DAILY T-DERMAL 05/05/17 09:00 05/06/17 09:00 (D50w (Vial) Inj) 50 ml UNSCH PRN IV PUSH 05/04/17 20:30 (Glucagon Inj) 1 mg STAT PRN IM 05/04/17 20:30 (Duoneb Neb) 1 ampule Q4HR NEB PRN NEB 05/05/17 00:15 05/05/17 03:35 (Ambien) 5 mg HS PRN PO 05/05/17 21:00 (NovoLOG SUPPLEMENTAL SCALE) 1 ACHS SLIDING SCALE SQ 05/05/17 12:00 05/05/17 21:00 (Lasix) 20 mg DAILY PO 05/06/17 09:00 05/06/17 11:31 (Ativan) 0.5 mg Q8H PRN PO 05/05/17 08:45 05/05/17 13:28 (Nitroglycerin 2% Oint) 1 inch Q6HR TOPICAL 05/05/17 18:00 05/06/17 11:31 (Coreg) 12.5 mg BID PO 05/05/17 21:00 05/06/17 09:00 Vital Signs / I&O Vital Signs Date Time Temp Pulse Resp B/P (MAP) Pulse Ox O2 Delivery O2 Flow Rate FiO2 05/06/17 15:01 97.9 71 18 111/56 (74) 92 05/06/17 13:01 72 05/06/17 12:00 68 05/06/17 11:30 97.9 71 18 103/53 (70) 93 05/06/17 11:00 62 05/06/17 10:12 94 Nasal Cannula 3.00 05/06/17 10:00 68 05/06/17 09:00 66 05/06/17 08:45 97.9 65 18 113/53 (73) 93 05/06/17 08:00 70 05/06/17 07:01 75 05/06/17 06:00 60 05/06/17 05:22 80 05/06/17 03:00 77 05/06/17 03:00 98.4 77 18 113/57 (75) 94 05/05/17 23:00 98.4 68 20 112/59 (76) 95 05/05/17 23:00 68 05/05/17 19:00 79 05/05/17 19:00 98.6 79 20 99/50 (66) 95 05/05/17 18:00 80 I/O 05/05/17 05/05/17 05/05/17 05/06/17 05/06/17 05/06/17 07:00 15:00 23:00 07:00 15:00 23:00 Intake Total 950 ml 240 ml 240 ml Output Total 600 ml 775 ml 400 ml Balance 350 ml -535 ml -160 ml Intake Oral 0 ml 240 ml 240 ml Packed Cells 800 ml Blood Product IV Normal Saline Flush 150 ml Output Urine Total 600 ml 775 ml 400 ml Stool Total 0 ml 0 ml Physical Exam NAD ANICTERIC, JOSEPHINE FLAT JVD LUNGS WITH FEW BIBASILAR CRACKLES RRR, 2/6 SYSTOLIC MURMUR LLSB ABD SOFT EXTR WITHOUT EDEMA Laboratory Laboratory Tests Test 05/06/17 04:34 White Blood Count 15.2 TH/MM3 Red Blood Count 3.79 MIL/MM3 Hemoglobin 10.2 GM/DL Hematocrit 31.2 % Mean Corpuscular Volume 82.5 FL Mean Corpuscular Hemoglobin 27.1 PG Mean Corpuscular Hemoglobin Concent 32.8 % Red Cell Distribution Width 19.6 % Platelet Count 298 TH/MM3 Mean Platelet Volume 9.0 FL Hematology Comments Blood Urea Nitrogen 30 MG/DL Creatinine 1.02 MG/DL Random Glucose 129 MG/DL Total Protein 5.3 GM/DL Albumin 2.4 GM/DL Calcium Level 7.6 MG/DL Magnesium Level 1.7 MG/DL Alkaline Phosphatase 90 U/L Aspartate Amino Transf (AST/SGOT) 18 U/L Alanine Aminotransferase (ALT/SGPT) 22 U/L Total Bilirubin 0.8 MG/DL Sodium Level 144 MEQ/L Potassium Level 3.3 MEQ/L Chloride Level 111 MEQ/L Carbon Dioxide Level 24.1 MEQ/L Anion Gap 9 MEQ/L Estimat Glomerular Filtration Rate 70 ML/MIN Assessment and Plan Assessment and Plan IMPRESSION: 1. Shortness of breath, anxiety vs pulmonary congestion/mild congestive heart failure. 2. Troponins positive for acute coronary syndrome in the setting of known coronary artery disease, possibly type 2 ACS 3. Severe anemia, upper versus lower gastrointestinal bleed. 4. Diabetes mellitus type 2. 5. Peripheral vascular disease, status post bypass. 6. Cardiomyopathy, LVEF 25-30% PLAN: MEDICATIONS REVIEWED CANNOT ANTICOAGULATE FOR ACS 2/2 SEVERE ANEMIA AND ? GI BLEED. DISCUSSED WITH SON CONTINUED EXPECTANT MEDICAL MGT IS BEST OPTION. NO NEW RECOMMENDATIONS WILL SIGN OFF. PLEASE CALL WITH ANY QUESTIONS Gilmar Forrester MD May 06, 2017 17:14
[2017-05-06] MEDS: LEVOFLOXACIN 500 MG TAB PO SCH (21:25)
[2017-05-07] VITALS (27 sets, daily range): BP systolic 85–117; BP diastolic 48–59; PULSE 64–82; RESP 16–18; TEMP 97.5–98.1; O2SAT 92–98
[2017-05-07] MEDS: NITROGLYCERIN 2% OINT 1 GM PACKET TOPICAL SCH ×4 (00:19→19:10)
[2017-05-07] MEDS: RESP: ALBUTEROL 2.5 MG/IPRATROPIUM 0.5 MG NEB (PRN) NEB (02:46)
[2017-05-07 04:46] LABS: HEMATOCRIT 30.8 % (39.0-51.0); HEMOGLOBIN 9.8 GM/DL (13.0-17.0); MEAN CELL VOLUME 82.8 FL (80.0-100.0); MEAN CORPUSCULAR HEMOGLOBIN 26.4 PG (27.0-34.0); MEAN CORPUSCULAR HGB CONC 31.9 % (32.0-36.0); PLATELET COUNT 262 TH/MM3 (150-450); RED BLOOD COUNT 3.72 MIL/MM3 (4.50-5.90); RED CELL DISTRIBUTION WIDTH 19.6 % (11.6-17.2); WHITE BLOOD COUNT 12.7 TH/MM3 (4.0-11.0)
[2017-05-07 05:09] LABS: BICARBONATE 27.8 MEQ/L (21.0-32.0); CALCIUM 7.8 MG/DL (8.5-10.1)
[2017-05-07] MEDS: RIVASTIGMINE 9.5 MG/24 HOUR PATCH T-DERMAL SCH (09:00)
[2017-05-07] MEDS: PANTOPRAZOLE SODIUM 40 MG VIAL IV PUSH SCH (11:00)
[2017-05-07] MEDS: CARVEDILOL 12.5 MG TAB PO SCH ×2 (11:01→21:13)
[2017-05-07] MEDS: LISINOPRIL 20 MG TAB PO SCH (11:01)
[2017-05-07] MEDS: SODIUM CHLORIDE 0.9% FLUSH 10 ML FLUSH IV FLUSH SCH ×2 (11:01→21:13)
[2017-05-07] MEDS: FUROSEMIDE 20 MG TAB PO SCH (11:01)
[2017-05-07] MEDS: INSULIN ASPART SUPPLEMENTAL SCALE SQ SCH ×3 (12:16→21:55)
--- NOTE | 2017-05-07 17:02 | HHI.PR ---
Subjective Remarks seen with son at bedside currently denies any chest pain or shortness of breath oriented to person and place- ff all commands he up and ambulated with a walker Objective Vitals Vital Signs Date Time Temp Pulse Resp B/P (MAP) Pulse Ox O2 Delivery O2 Flow Rate FiO2 05/07/17 12:00 98.0 73 16 111/59 (76) 92 05/07/17 12:00 73 05/07/17 12:00 92 Room Air 05/07/17 08:30 97.5 66 18 117/58 (77) 93 05/07/17 08:30 66 05/07/17 08:30 93 Nasal Cannula 4.00 05/07/17 07:43 92 Nasal Cannula 4.00 05/07/17 06:03 66 05/07/17 05:06 64 05/07/17 04:00 68 05/07/17 03:00 66 05/07/17 03:00 97.8 68 111/57 (75) 95 05/07/17 02:00 66 05/07/17 01:00 66 05/07/17 00:00 64 05/06/17 23:00 68 05/06/17 23:00 97.6 65 89/52 (64) 92 05/06/17 23:00 92 Nasal Cannula 3.00 05/06/17 22:00 70 05/06/17 21:00 68 05/06/17 20:00 70 05/06/17 19:00 72 05/06/17 19:00 94 Nasal Cannula 2.00 05/06/17 19:00 97.8 71 97/55 (69) 94 05/06/17 18:00 72 I/O 05/06/17 05/06/17 05/06/17 05/07/17 05/07/17 05/07/17 07:00 15:00 23:00 07:00 15:00 23:00 Intake Total 240 ml 1080 ml 480 ml Output Total 400 ml 1000 ml 400 ml Balance -160 ml 80 ml 80 ml Intake Oral 240 ml 1080 ml 480 ml Output Urine Total 400 ml 1000 ml 400 ml Stool Total 0 ml # Voids 1 # Bowel Movements 0 Result Diagram: 05/07/17 0357 05/07/17 0357 Imaging Last Impressions Chest X-Ray 05/04/17 1521 Signed Impressions: Service Date/Time: Thursday, May 04, 2017 15:29 - CONCLUSION: 1. Acute bilateral airspace disease. 2. COPD. 3. Stable pacemaker. Orlin Ortiz MD Objective Remarks awake and alert, on - good sats anicteri lungs- decrease breath sounds, no rales or whezes regular rhythm abdomen soft, nontender extremities no edema A/P Problem List: (1) NSTEMI (non-ST elevated myocardial infarction) ICD Code: I21.4 - Non-ST elevation (NSTEMI) myocardial infarction (2) Severe anemia ICD Code: D64.9 - Anemia, unspecified (3) Acute systolic heart failure ICD Code: I50.21 - Acute systolic (congestive) heart failure (4) HTN (hypertension) ICD Code: I10 - Essential (primary) hypertension (5) Pneumonia ICD Code: J18.9 - Pneumonia, unspecified organism (6) COPD (chronic obstructive pulmonary disease) ICD Code: J44.9 - Chronic obstructive pulmonary disease, unspecified Assessment and Plan 86 years old male presented with new onset CHF Ischemic cardiomyopathy - EF 25-35% - breathing better ACS Elevated troponin with History of CAD s/p stent 2002 Hx of AICD 2002 History of PVD s/p fem pop 2017 EKG- reviewed- RBBB pattern continue on Lasix, Coreg and Lisinopril continue Severe anemia- with cardiac risk factors- Hb 7.1 on admission. No acute blood loss reported overnight. GI consulted.- not good candidate for any procedure with above S/P transufision no OAC due to severe anemia PPI - continue Howard nd H in am Tactile fever- suspect underlying pneumonia- currently being treated w levrajivuin. Blood cx negative Hx of DM - stable. hold metformin while in hospital. Monitor BS and added Low dose ISS. - Metformin prn per basis COPD - continue on inhaler likely will qualify for home -2- will do walk test chronic smoker - counselled chemical prophylaxis contraindicated due to severe anemia. SCD's D/w son at length- current condition per son- they wound want to defer any further aggressive measures- agree with medical management- may even agree to scope if continues to drop Hgb their Mother is currently at home under Hospice with [facility] and they wound want patient to be referred they feel Dad's medications are not being well coordinated as OP and they state that their Mom since under [facility] has been doing well [facility] overseeing everything I told them that we will go ahead and consult [facility]- - diagnosis - Ischemic cardiomyopathy Problem Qualifiers (1) HTN (hypertension): Qualified Codes: I10 - Essential (primary) hypertension (2) Pneumonia: Qualified Codes: J18.1 - Lobar pneumonia, unspecified organism (3) COPD (chronic obstructive pulmonary disease): Qualified Codes: J44.9 - Chronic obstructive pulmonary disease, unspecified Lucy Razo MD May 07, 2017 17:02
[2017-05-07] MEDS ORDERED: POTASSIUM BICARBONATE 25 MEQ EFFERVESCENT TAB PO ONE (17:15)
[2017-05-07] MEDS ORDERED: OXYGENDME NAS.CANULA (17:39)
[2017-05-07 18:46] LABS: % SATURATION IRON PROFILE 5.3 % (20-50); IRON (FE) 16 MCG/DL (65-175); TOTAL IRON BINDING CAPACITY 302 MCG/DL (250-450)
[2017-05-07 18:48] LABS: FERRITIN 31 NG/ML (26-388)
[2017-05-07] MEDS: LEVOFLOXACIN 500 MG TAB PO SCH (21:13)
[2017-05-08] VITALS (32 sets, daily range): BP systolic 86–135; BP diastolic 47–64; PULSE 62–80; RESP 16–18; TEMP 97.4–98.2; O2SAT 92–95
[2017-05-08] MEDS: NITROGLYCERIN 2% OINT 1 GM PACKET TOPICAL SCH ×4 (00:17→17:47)
[2017-05-08 05:36] LABS: HEMATOCRIT 29.1 % (39.0-51.0); HEMOGLOBIN 9.3 GM/DL (13.0-17.0); MEAN CELL VOLUME 83.2 FL (80.0-100.0); MEAN CORPUSCULAR HEMOGLOBIN 26.7 PG (27.0-34.0); MEAN CORPUSCULAR HGB CONC 32.1 % (32.0-36.0); MEAN PLATELET VOLUME 8.7 FL (7.0-11.0); PLATELET COUNT 219 TH/MM3 (150-450); RED BLOOD COUNT 3.49 MIL/MM3 (4.50-5.90); WHITE BLOOD COUNT 12.7 TH/MM3 (4.0-11.0)
[2017-05-08 05:59] LABS: BICARBONATE 27.3 MEQ/L (21.0-32.0); CALCIUM 7.7 MG/DL (8.5-10.1); CREATININE 0.73 MG/DL (0.60-1.30)
--- NOTE | 2017-05-08 07:40 | HHI.PR ---
Subjective Remarks Mr Slaughter states he ahd a good night-, no chest pains or shortness of breath d/w staff - had a BM yesterday no complains of nausea or vomiting telemetry- in SR Objective Vitals Vital Signs Date Time Temp Pulse Resp B/P (MAP) Pulse Ox O2 Delivery O2 Flow Rate FiO2 05/08/17 06:00 71 05/08/17 05:00 63 05/08/17 04:00 66 05/08/17 03:00 93 Nasal Cannula 2.00 05/08/17 03:00 66 05/08/17 03:00 97.8 74 113/56 (75) 93 05/08/17 02:00 72 05/08/17 01:00 68 05/08/17 00:00 66 05/07/17 23:00 74 05/07/17 23:00 94 Nasal Cannula 2.00 05/07/17 23:00 97.6 69 85/48 (60) 94 05/07/17 22:00 76 05/07/17 21:00 66 05/07/17 20:00 72 05/07/17 19:06 98 Nasal Cannula 2.00 05/07/17 19:00 94 Nasal Cannula 2.00 05/07/17 19:00 98.1 76 107/57 (74) 94 05/07/17 19:00 68 05/07/17 18:00 66 05/07/17 17:00 74 05/07/17 16:00 68 05/07/17 15:50 97.9 68 16 117/57 (77) 92 05/07/17 15:50 92 Nasal Cannula 2.00 05/07/17 15:50 68 05/07/17 15:00 70 05/07/17 14:00 68 05/07/17 13:00 72 05/07/17 12:00 98.0 73 16 111/59 (76) 92 05/07/17 12:00 73 05/07/17 12:00 92 Room Air 05/07/17 11:00 78 05/07/17 10:00 76 05/07/17 09:00 82 05/07/17 08:30 97.5 66 18 117/58 (77) 93 05/07/17 08:30 66 05/07/17 08:30 93 Nasal Cannula 4.00 05/07/17 08:00 68 05/07/17 07:43 92 Nasal Cannula 4.00 I/O 05/07/17 05/07/17 05/07/17 05/08/17 05/08/17 05/08/17 07:00 15:00 23:00 07:00 15:00 23:00 Intake Total 480 ml 720 ml 240 ml Output Total 400 ml Balance 80 ml 720 ml 240 ml Intake Oral 480 ml 720 ml 240 ml Output Urine Total 400 ml # Voids 1 5 1 # Bowel Movements 1 Result Diagram: 05/08/17 0451 05/08/17 0451 Imaging Last Impressions Chest X-Ray 05/04/17 1521 Signed Impressions: Service Date/Time: Thursday, May 04, 2017 15:29 - CONCLUSION: 1. Acute bilateral airspace disease. 2. COPD. 3. Stable pacemaker. Orlin Ortiz MD Objective Remarks awake and alert, on 02 NC- good sats, oriented x 3 anicteric lungs- decrease breath sounds, no rales or wheezes regular rhythm abdomen soft, nontender extremities no edema neuro exam- unremarkable A/P Problem List: (1) NSTEMI (non-ST elevated myocardial infarction) ICD Code: I21.4 - Non-ST elevation (NSTEMI) myocardial infarction (2) Severe anemia ICD Code: D64.9 - Anemia, unspecified (3) Acute systolic heart failure ICD Code: I50.21 - Acute systolic (congestive) heart failure (4) HTN (hypertension) ICD Code: I10 - Essential (primary) hypertension (5) Pneumonia ICD Code: J18.9 - Pneumonia, unspecified organism (6) COPD (chronic obstructive pulmonary disease) ICD Code: J44.9 - Chronic obstructive pulmonary disease, unspecified Assessment and Plan 86 years old male presented with new onset CHF Ischemic cardiomyopathy - EF 25-35% - ACS Elevated troponin with History of CAD s/p stent 2002 Hx of AICD 2002 History of PVD s/p fem pop 2017 EKG- reviewed- RBBB pattern continue on Lasix, Coreg and Lisinopril, nitrates- decrease to 1/2 q 6 continue 02 medical management Severe anemia- with cardiac risk factors- Hb 7.1 on admission. No acute blood loss reported overnight. Iron deficiency anemia GI consulted.- not good candidate for any procedure with above S/P transufusion give IV Iron x 1 start po FErrous sulfate 325 mg pob id no OAC due to severe anemia PPI - continue H and H stable Hypokalemia- replace po and start bid Tactile fever-- afebrile suspect underlying pneumonia- currently being treated w levaqcarrol. Blood cx negative Hx of DM - stable. hold metformin while in hospital. Monitor BS and added Low dose ISS. - per patient takes Metformin prn per basis. check a1C COPD - continue on inhaler likely will qualify for home -2- will do 02 walk test today chronic smoker - counselled Increase activity today-- out of bed to chair tid PT consult Urinary retention - bladder scan- 1000 left after voiding some 200cc - start flomax -insert de jesus chemical prophylaxis contraindicated due to severe anemia. SCD's 05/07 D/w son at length- current condition per son- they wound want to defer any further aggressive measures- agree with medical management- may even agree to scope if continues to drop Hgb their Mother is currently at home under Hospice with [facility] and they wound want patient to be referred they feel Dad's medications are not being well coordinated as OP and they state that their Mom since under [facility] has been doing well [facility] overseeing everything I told them that we will go ahead and consult [facility]- - diagnosis - Ischemic cardiomyopathy Problem Qualifiers (1) HTN (hypertension): Qualified Codes: I10 - Essential (primary) hypertension (2) Pneumonia: Qualified Codes: J18.1 - Lobar pneumonia, unspecified organism (3) COPD (chronic obstructive pulmonary disease): Qualified Codes: J44.9 - Chronic obstructive pulmonary disease, unspecified Lucy Razo MD May 08, 2017 07:40
[2017-05-08] MEDS ORDERED: IRON SUCROSE INJ 200 MG in SODIUM CHLORIDE 0.9% INJ 100 ML IV ONE (09:00)
[2017-05-08] MEDS: INSULIN ASPART SUPPLEMENTAL SCALE SQ SCH ×4 (09:01→21:00)
[2017-05-08] MEDS: RIVASTIGMINE 9.5 MG/24 HOUR PATCH T-DERMAL SCH (09:05)
[2017-05-08] MEDS: POTASSIUM CHLORIDE 20 MEQ CONTROLLED RELEASE TAB PO SCH ×2 (09:06→22:51)
[2017-05-08] MEDS: PANTOPRAZOLE SOD 40 MG DELAYED RELEASE TAB PO SCH (09:06)
[2017-05-08] MEDS: LISINOPRIL 20 MG TAB PO SCH (09:07)
[2017-05-08] MEDS: FUROSEMIDE 20 MG TAB PO SCH (09:07)
[2017-05-08] MEDS: SODIUM CHLORIDE 0.9% FLUSH 10 ML FLUSH IV FLUSH SCH ×2 (09:07→22:53)
[2017-05-08] MEDS: CARVEDILOL 12.5 MG TAB PO SCH ×2 (09:07→22:50)
[2017-05-08 12:57] LABS: HEMOGLOBIN A1C 6.9 % (4.3-6.0)
[2017-05-08] MEDS: FERROUS SULFATE 325 MG (65 MG ELEMENTAL IRON) TAB PO SCH ×2 (13:04→17:43)
[2017-05-08] MEDS: LEVOFLOXACIN 500 MG TAB PO SCH (22:50)
[2017-05-08] MEDS: TAMSULOSIN HCL 0.4 MG CAP PO SCH (22:52)
[2017-05-09] VITALS (15 sets, daily range): BP systolic 101–137; BP diastolic 54–64; PULSE 65–82; RESP 16–18; TEMP 98–98.1; O2SAT 92–98
[2017-05-09] MEDS: NITROGLYCERIN 2% OINT 1 GM PACKET TOPICAL SCH ×2 (06:14)
--- NOTE | 2017-05-09 07:38 | HHI.PR ---
Subjective Remarks awake and alert states "had a pretty good night" discussed with night nurse- no acute events Objective Vitals Vital Signs Date Time Temp Pulse Resp B/P (MAP) Pulse Ox O2 Delivery O2 Flow Rate FiO2 05/09/17 06:00 70 05/09/17 05:00 70 05/09/17 04:00 72 05/09/17 03:30 94 2.00 05/09/17 03:30 98.1 68 16 101/54 (70) 94 05/09/17 03:00 70 05/09/17 02:00 70 05/09/17 01:00 70 05/09/17 00:00 71 05/08/17 23:55 98.2 80 16 135/63 (87) 92 05/08/17 23:53 92 2.00 05/08/17 23:00 62 05/08/17 22:00 80 05/08/17 21:33 94 Nasal Cannula 2.00 05/08/17 21:00 70 05/08/17 20:07 98.2 80 18 110/64 (79) 94 05/08/17 20:00 80 05/08/17 20:00 94 Nasal Cannula 2.00 05/08/17 19:00 70 05/08/17 18:07 71 05/08/17 17:01 64 05/08/17 16:06 62 05/08/17 15:19 97.4 69 16 110/58 (75) 95 05/08/17 15:19 95 Nasal Cannula 2.00 05/08/17 15:00 80 05/08/17 14:45 2.00 05/08/17 14:00 65 05/08/17 13:00 62 05/08/17 12:00 66 05/08/17 11:30 90/49 (63) 05/08/17 11:06 95 Nasal Cannula 2.00 05/08/17 11:06 97.8 63 16 86/47 (60) 95 05/08/17 11:00 64 05/08/17 10:00 74 05/08/17 09:00 74 05/08/17 08:48 93 Nasal Cannula 2.00 05/08/17 08:00 64 05/08/17 07:41 97.9 80 16 127/61 (83) 94 05/08/17 07:41 94 Nasal Cannula 2.00 I/O 05/08/17 05/08/17 05/08/17 05/09/17 05/09/17 05/09/17 07:00 15:00 23:00 07:00 15:00 23:00 Intake Total 240 ml 480 ml 240 ml Output Total 1270 ml 400 ml Balance 240 ml -790 ml -160 ml Intake Oral 240 ml 480 ml 240 ml Output Urine Total 1270 ml 400 ml # Voids 1 # Bowel Movements 0 0 Result Diagram: 05/08/17 0451 05/08/17 0451 Imaging Last Impressions Chest X-Ray 05/04/17 1521 Signed Impressions: Service Date/Time: Thursday, May 04, 2017 15:29 - CONCLUSION: 1. Acute bilateral airspace disease. 2. COPD. 3. Stable pacemaker. Orlin Ortiz MD Objective Remarks awake and alert, on NC- good sats, oriented x 3 anicteric lungs- decrease breath sounds, no rales or wheezes regular rhythm abdomen soft, nontender extremities no edema neuro exam- unremarkable de jesus in place Urinary Catheter: Yes Assessment to: Continue De Jesus insert reason: Obstruction/Retention Date of Insertion: May 08, 2017 A/P Problem List: (1) NSTEMI (non-ST elevated myocardial infarction) ICD Code: I21.4 - Non-ST elevation (NSTEMI) myocardial infarction (2) Severe anemia ICD Code: D64.9 - Anemia, unspecified (3) Acute systolic heart failure ICD Code: I50.21 - Acute systolic (congestive) heart failure (4) HTN (hypertension) ICD Code: I10 - Essential (primary) hypertension (5) Pneumonia ICD Code: J18.9 - Pneumonia, unspecified organism (6) COPD (chronic obstructive pulmonary disease) ICD Code: J44.9 - Chronic obstructive pulmonary disease, unspecified Assessment and Plan 86 years old male presented with new onset CHF Ischemic cardiomyopathy - EF 25-35% - ACS Elevated troponin with History of CAD s/p stent 2002 Hx of AICD 2002 History of PVD s/p fem pop 2017 EKG- reviewed- RBBB pattern continue on Lasix, Coreg and Lisinopril, nitrates- 1/2 in q 6 continue 02 medical management Severe anemia- with cardiac risk factors- Hb 7.1 on admission. No acute blood loss reported overnight. Iron deficiency anemia GI consulted.- not good candidate for any procedure with above S/P transufusion give IV Iron x 1 start po FErrous sulfate 325 mg pob id no OAC due to severe anemia PPI - continue Hypokalemia- replace po and start po bid. recheck today Tactile fever-- afebrile suspect underlying pneumonia- currently being treated w levaquin. Blood cx negative Hx of DM - stable. hold metformin while in hospital. Monitor BS and added Low dose ISS. - per patient takes Metformin prn per basis. check a1C COPD - continue on inhaler likely will qualify for home -2- will do 02 walk test today chronic smoker - counselled Increase activity today-- out of bed to chair tid PT consult Urinary retention - bladder scan- 1000 left after voiding some 200cc - start flomax 05/08 - insert de jesus 05/08 - trail voiding in 3 days chemical prophylaxis contraindicated due to severe anemia. SCD's family met with Hospice yesterday possible DC with home hospice with [facility]- will wait for call from [facility] to finalize dc plans 05/07 D/w son at length- current condition per son- they wound want to defer any further aggressive measures- agree with medical management- may even agree to scope if continues to drop Hgb their Mother is currently at home under Hospice with [facility] and they wound want patient to be referred they feel Dad's medications are not being well coordinated as OP and they state that their Mom since under [facility] has been doing well [facility] overseeing everything I told them that we will go ahead and consult [facility]- - diagnosis - Ischemic cardiomyopathy Problem Qualifiers (1) HTN (hypertension): Qualified Codes: I10 - Essential (primary) hypertension (2) Pneumonia: Qualified Codes: J18.1 - Lobar pneumonia, unspecified organism (3) COPD (chronic obstructive pulmonary disease): Qualified Codes: J44.9 - Chronic obstructive pulmonary disease, unspecified Lucy Razo MD May 09, 2017 07:38
[2017-05-09] MEDS: INSULIN ASPART SUPPLEMENTAL SCALE SQ SCH (08:00)
[2017-05-09 08:23] LABS: HEMATOCRIT 32.2 % (39.0-51.0); HEMOGLOBIN 10.2 GM/DL (13.0-17.0); MEAN CELL VOLUME 84.1 FL (80.0-100.0); MEAN CORPUSCULAR HEMOGLOBIN 26.6 PG (27.0-34.0); MEAN CORPUSCULAR HGB CONC 31.6 % (32.0-36.0); MEAN PLATELET VOLUME 8.7 FL (7.0-11.0); PLATELET COUNT 249 TH/MM3 (150-450); RED BLOOD COUNT 3.82 MIL/MM3 (4.50-5.90); RED CELL DISTRIBUTION WIDTH 19.9 % (11.6-17.2); WHITE BLOOD COUNT 14.9 TH/MM3 (4.0-11.0)
[2017-05-09 08:47] LABS: BICARBONATE 24.8 MEQ/L (21.0-32.0); CALCIUM 7.8 MG/DL (8.5-10.1); CREATININE 0.72 MG/DL (0.60-1.30)
[2017-05-09] MEDS: PANTOPRAZOLE SOD 40 MG DELAYED RELEASE TAB PO SCH (08:50)
[2017-05-09] MEDS: CARVEDILOL 12.5 MG TAB PO SCH (08:50)
[2017-05-09] MEDS: LISINOPRIL 20 MG TAB PO SCH (08:50)
[2017-05-09] MEDS: POTASSIUM CHLORIDE 20 MEQ CONTROLLED RELEASE TAB PO SCH (08:50)
[2017-05-09] MEDS: TAMSULOSIN HCL 0.4 MG CAP PO SCH (08:50)
[2017-05-09] MEDS: FUROSEMIDE 20 MG TAB PO SCH (08:50)
[2017-05-09] MEDS: SODIUM CHLORIDE 0.9% FLUSH 10 ML FLUSH IV FLUSH SCH (08:51)
[2017-05-09] MEDS: RIVASTIGMINE 9.5 MG/24 HOUR PATCH T-DERMAL SCH (08:51)
[2017-05-09] MEDS ORDERED: TAMS5CAP PO (11:00)
[2017-05-09] MEDS ORDERED: CARV12.5 PO (11:00)
[2017-05-09] MEDS ORDERED: FURO20TA PO (11:00)
[2017-05-09] MEDS ORDERED: NITR2OIN TOPICAL (11:00)
[2017-05-09] MEDS ORDERED: LEVA500T33 PO (11:00)
[2017-05-09] MEDS ORDERED: POTA20TA5 PO (11:03)
[2017-05-09] MEDS ORDERED: FERR325T20 PO (11:03)
--- NOTE | 2017-05-09 14:40 | HHI.DS ---
Discharge Summary Admission Date May 04, 2017 at 19:23 Discharge Date: May 09, 2017 Admitting Diagnosis respiratory distress, elevated troponin, CHF exacerbation (1) NSTEMI (non-ST elevated myocardial infarction) ICD Code: I21.4 - Non-ST elevation (NSTEMI) myocardial infarction Diagnosis: Principal (2) Severe anemia ICD Code: D64.9 - Anemia, unspecified Diagnosis: Principal (3) Acute systolic heart failure ICD Code: I50.21 - Acute systolic (congestive) heart failure Diagnosis: Principal (4) HTN (hypertension) ICD Code: I10 - Essential (primary) hypertension Diagnosis: Secondary (5) Pneumonia ICD Code: J18.9 - Pneumonia, unspecified organism Diagnosis: Secondary (6) COPD (chronic obstructive pulmonary disease) ICD Code: J44.9 - Chronic obstructive pulmonary disease, unspecified Diagnosis: Secondary Procedures none Brief History - From Admission History from patient, family members at the bedside, ER physician communication , and review of medical records. Patient himself is elderly gentleman with baseline dementia. His daughter and son-in-law are at the bedside. His son-in-law lives with patient and patient's and takes care of the patient as a full-time caregiver. The son-in-law stated that patient was having quite a bit of cough yesterday. An early today morning, the patient woke this son-in-law up around 6 AM. He told the son-in-law that he could not breathe and ask him to call 911. The son-in-law thought that patient was having an anxiety attack and therefore told him to calm himself down and gave oxygen that is of his 's. I around 9 AM, the son-in-law called PCP and made an appointment to go see PCP. While on the way, patient was starting to have heavy breathing, tachypnea. As soon as they got to the PCP office, the staff called 911. Son-in-law reported the patient was also extremely pale and oxygen saturation was low according to the office staff. In the emergency room, patient was saturating around 97% on 3 L nasal cannula. According to the family, patient's baseline is that he is able to tell the family if he has abnormal stools. He usually goes to bathroom on his own and does not require assistance. He walks with a walker by himself. Son-in-law and daughter stated the patient and his has been mostly sleeping too much all day long both day and night. As for his they know, there was no black stools or red stools or blood in his urine. Patient himself is unclear whether he sees any black stool. At one point he stated he hadn't and then another point he would say he did not. He does have history of hemorrhoids. Son-in-law stated that patient was having cough but no fever and was really looking very well over the weekend. 2 weeks ago, patient had a fall which made him with some skin abrasion on his right upper extremity. He did not go to any emergency room at that time and there was no residual deficit or illness that the family noted after the fall. Family also denies any peripheral edema. CBC/BMP: 05/09/17 0817 05/09/17 0817 Significant Findings Laboratory Tests Test 05/07/17 03:57 05/08/17 04:51 05/09/17 08:17 White Blood Count 12.7 TH/MM3 (4.0-11.0) 12.7 TH/MM3 (4.0-11.0) 14.9 TH/MM3 (4.0-11.0) Red Blood Count 3.72 MIL/MM3 (4.50-5.90) 3.49 MIL/MM3 (4.50-5.90) 3.82 MIL/MM3 (4.50-5.90) Hemoglobin 9.8 GM/DL (13.0-17.0) 9.3 GM/DL (13.0-17.0) 10.2 GM/DL (13.0-17.0) Hematocrit 30.8 % (39.0-51.0) 29.1 % (39.0-51.0) 32.2 % (39.0-51.0) Mean Corpuscular Hemoglobin 26.4 PG (27.0-34.0) 26.7 PG (27.0-34.0) 26.6 PG (27.0-34.0) Mean Corpuscular Hemoglobin Concent 31.9 % (32.0-36.0) 31.6 % (32.0-36.0) Red Cell Distribution Width 19.6 % (11.6-17.2) 20.0 % (11.6-17.2) 19.9 % (11.6-17.2) Blood Urea Nitrogen 25 MG/DL (7-18) 22 MG/DL (7-18) 19 MG/DL (7-18) Calcium Level 7.8 MG/DL (8.5-10.1) 7.7 MG/DL (8.5-10.1) 7.8 MG/DL (8.5-10.1) Potassium Level 3.4 MEQ/L (3.5-5.1) 3.3 MEQ/L (3.5-5.1) Estimat Glomerular Filtration Rate 71 ML/MIN (>89) Iron Level 16 MCG/DL (65-175) Percent Iron Saturation 5.3 % (20-50) Random Glucose 157 MG/DL (74-106) 142 MG/DL (74-106) Hemoglobin A1c 6.9 % (4.3-6.0) Chloride Level 109 MEQ/L (98-107) PE at Discharge awake and alert, on 02 NC- good sats, oriented x 3 anicteric lungs- decrease breath sounds, no rales or wheezes regular rhythm abdomen soft, nontender extremities no edema neuro exam- unremarkable de jesus in place Pt update on day of discharge afebrile, in no acute distress supportive family Hospital Course 86 years old male presented with new onset CHF Ischemic cardiomyopathy - EF 25-35% - ACS Elevated troponin with History of CAD s/p stent 2002 Hx of AICD 2003 History of PVD s/p fem pop 2017 EKG- reviewed- RBBB pattern continue on Lasix, Coreg and Lisinopril, nitrates- 1/2 in q 6 continue 02 medical management Severe anemia- with cardiac risk factors- Hb 7.1 on admission. No acute blood loss reported overnight. Iron deficiency anemia GI consulted.- not good candidate for any procedure with above S/P transufusion give IV Iron x 1 start po FErrous sulfate 325 mg pob id no OAC due to severe anemia PPI - continue Hypokalemia- replace po and start po bid. recheck today Tactile fever-- afebrile suspect underlying pneumonia- currently being treated w levaquin. Blood cx negative Hx of DM - stable. hold metformin while in hospital. Monitor BS and added Low dose ISS. - per patient takes Metformin prn per basis. check a1C COPD - continue on inhaler likely will qualify for home -2- will do 02 walk test today chronic smoker - counselled Increase activity today-- out of bed to chair tid PT consult Urinary retention - bladder scan- 1000 left after voiding some 200cc - start flomax 05/08 - insert de jesus 05/08 - trail voiding in 3 days chemical prophylaxis contraindicated due to severe anemia. SCD's family met with Hospice DC with home hospice with vitas- Pt Condition on Discharge: Stable Discharge Disposition: Hospice/ Home Discharge Time: > 30 minutes Discharge Instructions DIET: Follow Instructions for: As Tolerated, No Restrictions Speech Therapy-Diet Recommends: Regular Activities you can perform: Weight Bearing as Ana New Orders: COMP MET PROF (CMP) - 05/10/17 New Medications: Oxygen (O2) (Oxygen (O2)) Device LITER ADRIANO.CANULA CONTINUOUS for Prevent Hypoxemia, #2 Oxygen Concentrator Portable Gaseous 2 L/min via Nasal Canula Continuous For 99 months Carvedilol (Coreg) 12.5 Mg Tab 12.5 MG PO BID for cardio for 30 Days, #60 TAB Ferrous Sulfate (Ferosul) 325 Mg (65 Mg Iron) Tablet 325 MG PO BID@12,17 for irondef for 30 Days, #60 TAB Furosemide (Furosemide) 20 Mg Tab 20 MG PO DAILY for CARD for 30 Days, #30 TAB Levofloxacin (Levaquin) 500 Mg Tablet 500 MG PO Q24H for PossPN for 3 Days, #3 TAB Nitroglycerin Topical (Nitro-Bid Topical) 2 % Oint 0.5 INCH TOPICAL Q6HR for NSTEMI for 30 Days, #1 TUBE Potassium Chloride Microencaps (Potassium Chloride Microencaps) 20 Meq Tab 20 MEQ PO Q12HR for electr for 30 Days, TAB Tamsulosin (Flomax) 0.4 Mg Cap 0.4 MG PO DAILY for retention for 30 Days, #30 CAP Continued Medications: Aspirin (Aspirin) 81 Mg Chew 81 MG CHEW DAILY, TAB 0 Refills Lisinopril (Lisinopril) 20 Mg Tab 20 MG PO DAILY, #30 TAB 0 Refills Rivastigmine Patch (Rivastigmine Patch) 9.5 mg/24 hr Patch 1 PATCH T-DERMAL DAILY for Dementia, #30 PATCH 0 Refills Trazodone (Trazodone) 50 Mg Tab 50 MG PO HS for Control Depression, #30 TAB 0 Refills Discontinued Medications: Carvedilol (Carvedilol) 6.25 Mg Tab 6.25 MG PO BID, #60 TAB 0 Refills Metformin (Metformin) 500 Mg Tab 500 MG PO TIDPC for Blood Sugar Management, #90 TAB 0 Refills Lucy Razo MD May 09, 2017 14:40
--- NOTE | 2017-05-17 18:05 | PQ ---
Physician Query Response Document PATIENT: RAMESH HAAS : 1930 ADMIT DATE: 05/04/2017 7:23 PM DISCH DATE: 05/09/2017 12:15 PM RESPONDING PROVIDER #: [email or web address] QUERY TEXT: CDS Clarification Myocardial infarction type 2 in this patient with CAD and cardiomyopathy requiring treatment with Nit ro patch, serial troponins/EKG, cardiac consult and O2. Other explanation of clinical findings. Unable to determine (no explanation for clinical findings). The patient's Clinical Indicators include: The medical record reflects the following clinical findings, treatment, and risk factors. * Clinical Indicators: Troponin 0.15 -> 0.18 -> 0.79; Shortness of breath, possibly type 2 ACS docume nted * Risk Factors: CAD w/ stents, PVD, cardiomyopathy, HTN * Treatment; Serial troponins/EKG, Cardiac consult, O2, Nitro patch, tele Please clarify and document your clinical opinion in the progress notes and discharge summary includi ng the definitive and/or presumptive diagnosis (suspected or probable), related to the above clinical findings. Please include clinical findings supporting your diagnosis. Thank you, Maureen Smith CDS: Maureen Luis Patient Unit: [facility] Contact Number: [phone] Room: [facility] Query created by: Maureen Smith on 05/06/2017 10:14 AM RESPONSE TEXT: Myocardial infarction type 2 in this patient with CAD and cardiomyopathy requiring treatment for Nitr o Patch, serial troponins/EKG, cardiac consult and O2 QUERY TEXT: CDS Clarification Acute systolic CHF in the setting of new onset CHF, CAD, HTN requiring treatment with Lasix IV/PO and cardiac consult. Other explanation of clinical findings. Unable to determine (no explanation for clinical findings). The patient's Clinical Indicators include: The medical record reflects the following clinical findings, treatment, and risk factors. * Clinical Indicators: EF 25-30%, BNP 1379, SOB, coarse crepitations at bases * Risk Factors: New onset CHF, CAD, HTN * Treatment: Intially Lasix 40mg IV, then Lasix 20mg PO daily, cardiac consult, echo, tele Please clarify and document your clinical opinion in the progress notes and discharge summary includi ng the definitive and/or presumptive diagnosis (suspected or probable), related to the above clinical findings. Please include clinical findings supporting your diagnosis. Thank you, Maureen Smith CDS: Maureen Piedralowe Patient Unit: [facility] Contact Number: [phone] Room: [facility] Query created by: Maureen Smith on 05/06/2017 10:28 AM RESPONSE TEXT: Acute systolic CHF in the setting of new onset CHF, CAD, HTN requiring treatment with Lasix IV/PO and cardiology consultation. Electronically signed by: Yfn Whitlcok MD 05/17/2017 6:01 PM
== END 2017-05-09 12:15 | disposition hospice, home (50) | DRG 280 ==
LOC: NEPE 14:54 → NEDA 19:23 → HCPC 23:15
PROVIDERS: ADMIT Internal Medicine; ATTEND Internal Medicine
PROC: 30233N1 Transfusion of Nonautologous Red Blood Cells into Peripheral Vein, Percutaneous Approach (ICD-10-PCS; principal; 2017-05-04)
PROC: 3E033GC Introduction of Other Therapeutic Substance into Peripheral Vein, Percutaneous Approach (ICD-10-PCS; 2017-05-08)
PROC: 0T9B70Z Drainage of Bladder with Drainage Device, Via Natural or Artificial Opening (ICD-10-PCS; 2017-05-08)
DX: I21.A1 Myocardial infarction type 2 (principal); I11.0 Hypertensive heart disease with heart failure; I50.21 Acute systolic (congestive) heart failure; J44.0 Chronic obstructive pulmonary disease with (acute) lower respiratory infection; J18.9 Pneumonia, unspecified organism; E11.51 Type 2 diabetes mellitus with diabetic peripheral angiopathy without gangrene; Z79.84 Long term (current) use of oral hypoglycemic drugs; F01.50 Vascular dementia, unspecified severity, without behavioral disturbance, psychotic disturbance, mood disturbance, and anxiety; D50.9 Iron deficiency anemia, unspecified; F17.210 Nicotine dependence, cigarettes, uncomplicated; E87.6 Hypokalemia; I25.5 Ischemic cardiomyopathy; Z95.810 Presence of automatic (implantable) cardiac defibrillator; I25.10 Atherosclerotic heart disease of native coronary artery without angina pectoris; Z95.5 Presence of coronary angioplasty implant and graft; R33.9 Retention of urine, unspecified; Z85.828 Personal history of other malignant neoplasm of skin; Z86.73 Personal history of transient ischemic attack (TIA), and cerebral infarction without residual deficits; Z66 Do not resuscitate
CPT/HCPCS: 36430; 71045; 80048; 80053; 81001; 82550; 82728; 82948; 83036; 83540; 83550; 83735; 83880; 84484; 85025; 85027; 85610; 86850; 86900; 86901; 86920; 87040; 90686; 90732; 93005; 93306; 94618; 94640; 94664; 96374; C9113; J1756; J1815; J1940; J2930; J7613; P9016; Q2038